=== PATIENT | female | born 1930 | race African-American/Black ===

== ENCOUNTER 2016-10-27 08:46 | Outpatient (CLI) | payer MEDICARE ==
[2016-10-27 09:06] LABS: #Basophils 0.1 thou/uL (0.0-0.2); #Eosinphils 0.2 thou/uL (0.0-0.7); #Lymphocytes 0.9 thou/uL (1.20-3.40); #Monocytes 0.6 thou/uL (0.11-0.59); #Neutrophils 3.4 thou/uL (1.40-6.50); %Basophils 1.3 % (0.0-1.0); %Eosinophils 3.6 % (0.0-10.0); %Monocytes 10.8 % (0.0-10.0); Hematocrit 28.8 % (36.0-47.0); Mean Platelet Volume 5.5 fL (7.4-10.4); Red Blood Cell (RBC) Count 2.76 mill/uL (4.20-5.40); White Blood Cell (WBC) Count 5.1 thou/uL (4.8-10.8)
[2016-10-27 09:09] LABS: Prothrombin Time 17.4 SEC (12.0-14.7)
[2016-10-27 09:23] LABS: Hemoglobin A1c 7.3 % (4.0-6.0)
[2016-10-27 09:35] LABS: ALT (SGPT) 16 U/L (0-55); AST (SGOT) 16 U/L (5-34); Alkaline Phosphatase 68 U/L (40-150); Anion Gap 12 mmol/L (10-20); BUN (Urea Nitrogen) 31 mg/dL (9.8-20.1); Bilirubin, Total 0.3 mg/dL (0.2-1.2); Calc. Creatinine Clearance 0 mL/min (70-130); Calcium 8.6 mg/dL (7.8-10.44); Carbon Dioxide 30 mmol/L (23-31); Chloride 104 mmol/L (98-107); Estimated GFR-MDRD 45; LDL Cholesterol, Calculated 173 mg/dL; Protein, Total 6.6 g/dL (5.8-8.1)
== END 2016-10-27 08:47 | disposition home or self-care (01) ==
LOC: BURLAB 08:46
PROVIDERS: ATTEND Family Medicine
DX: E78.5 Hyperlipidemia, unspecified (principal); E11.9 Type 2 diabetes mellitus without complications; I10 Essential (primary) hypertension; Z79.01 Long term (current) use of anticoagulants
CPT/HCPCS: 36415; 80053; 80061; 83036; 85025; 85610

== ENCOUNTER 2016-11-13 11:07 | Outpatient (CLI) | payer MEDICARE ==
--- NOTE | 2016-11-13 20:09 | RAD ---
CHEST TWO VIEWS: Date: 11-13-16 Comparison: 03-22-16 FINDINGS: The heart is moderately enlarged. The upper lobe vessels really do not appear congested. There are no effusions. Some lingular scarring is noted on the left. No major lobar infiltrate was seen. M edian sternotomy sutures are noted as usual, as well as evidence of a prior valvular replacement. T here is some slight fragmentation of the right humeral head that appears chronic. IMPRESSION: Moderate cardiomegaly and some chronic changes in the lungs but no acute findings. POS: HOME
== END 2016-11-13 11:08 | disposition home or self-care (01) ==
LOC: BURRAD 11:07
PROVIDERS: ATTEND Family Medicine
DX: J44.9 Chronic obstructive pulmonary disease, unspecified (principal)
CPT/HCPCS: 71020

== ENCOUNTER 2017-02-06 09:27 | Outpatient (CLI) | payer MEDICARE ==
[2017-02-06 10:14] LABS: Anion Gap 13 mmol/L (10-20); BUN (Urea Nitrogen) 24 mg/dL (9.8-20.1); Calc. Creatinine Clearance 0 mL/min (70-130); Calcium 8.8 mg/dL (7.8-10.44); Carbon Dioxide 27 mmol/L (23-31); Chloride 106 mmol/L (98-107); Estimated GFR-MDRD 34; Glucose 156 mg/dL (83-110); Potassium 4.8 mmol/L (3.5-5.1); Sodium 141 mmol/L (136-145)
== END 2017-02-06 09:28 | disposition home or self-care (01) ==
LOC: BURLAB 09:27
PROVIDERS: ATTEND Specialist
DX: I25.10 Atherosclerotic heart disease of native coronary artery without angina pectoris (principal); Z79.899 Other long term (current) drug therapy
CPT/HCPCS: 36415; 80048

== ENCOUNTER 2017-02-22 13:54 | Outpatient (CLI) | payer MEDICARE ==
[2017-02-22 14:25] LABS: #Eosinphils 0.2 thou/uL (0.0-0.7); #Lymphocytes 1.2 thou/uL (1.20-3.40); #Monocytes 0.6 thou/uL (0.11-0.59); #Neutrophils 3.4 thou/uL (1.40-6.50); %Basophils 0.9 % (0.0-1.0); %Eosinophils 2.9 % (0.0-10.0); %Lymphocytes 21.7 % (21.0-51.0); %Monocytes 10.5 % (0.0-10.0); %Neutrophils 64.1 % (42.0-75.0); Hemoglobin 11.3 g/dL (12.0-16.0); Mean Corpuscular HGB CONC 31.6 g/dL (32.0-36.0); Mean Corpuscular Hemoglobin 32.3 pg (27.0-31.0); Mean Platelet Volume 6.6 fL (7.4-10.4); Platelet Count 201 thou/uL (130-400); RBC Distribution Width 13.6 % (11.5-14.5); Red Blood Cell (RBC) Count 3.49 mill/uL (4.20-5.40); White Blood Cell (WBC) Count 5.3 thou/uL (4.8-10.8)
[2017-02-22 14:43] LABS: ALT (SGPT) 13 U/L (8-55); AST (SGOT) 13 U/L (5-34); Albumin 3.7 g/dL (3.4-4.8); Alkaline Phosphatase 86 U/L (40-150); Anion Gap 13 mmol/L (10-20); BUN (Urea Nitrogen) 37 mg/dL (9.8-20.1); Bilirubin, Total 0.4 mg/dL (0.2-1.2); Calc. Creatinine Clearance 0 mL/min (70-130); Calcium 9.1 mg/dL (7.8-10.44); Carbon Dioxide 32 mmol/L (23-31); Chloride 103 mmol/L (98-107); Estimated GFR-MDRD 29; Glucose 210 mg/dL (83-110); Potassium 4.9 mmol/L (3.5-5.1); Protein, Total 6.7 g/dL (6.0-8.3); Sodium 143 mmol/L (136-145)
[2017-02-22 18:20] LABS: Folate (Folic Acid) 13.4 ng/mL (7.0-31.4)
== END 2017-02-22 13:55 | disposition home or self-care (01) ==
LOC: HPCALD 13:54
PROVIDERS: ATTEND Family Medicine
DX: D53.9 Nutritional anemia, unspecified (principal)
CPT/HCPCS: 36415; 80053; 82607; 82746; 85025

== ENCOUNTER 2017-03-28 09:34 | Outpatient (CLI) | payer MEDICARE ==
--- NOTE | 2017-03-28 20:46 | ULT ---
CAROTID ULTRASOUND 03/28/17 Color duplex doppler ultrasonography of the carotid and vertebral system was performed. The 2D image s do not show a substantial amount of plaque. Doppler readings were within normal limits bilaterally . Peak flows in the right ICA were 86/22 cm/s with a normal systolic velocity ratio of 1.60. Flows i n the left ICA were 104/29 with a systolic velocity of 1.42. Flows in the other carotid vessels were normal. Vertebral flow was antegrade bilaterally. IMPRESSION: No significant carotid findings. No evidence of significant stenosis. POS: HOME
--- NOTE | 2017-03-29 07:44 | CT ---
CT ABDOMEN AND PELVIS WITHOUT CONTRAST 03/28/17 Comparison is made with prior renal ultrasounds of 01/25/16 and 05/02/16. These have shown cyst or cysts in the right kidney in the past, though in neither case did the patie nt image very well by ultrasound. This being a noncontrast study, it does not show the kidneys optim ally. The lung bases are clear. The liver, spleen, and pancreas and were unremarkable within the limitatio ns of a noncontrast study. Prior cholecystectomy is noted. The adrenal glands appear normal as does the abdominal aorta (except for calcifications within it). Regarding the kidneys, there is no large mass or hydronephrosis. There is probably a peripheral cyst in the mid portion of the right kidney that measures 1.3 cm in size. I am hard pressed to see any o ther cysts or mass on today's exam. The bowel is nondistended. There is no sign of inflammatory change around bowel. No free air or free fluid was seen. CT of the pelvis shows no pelvic masses, fluid collections, or other acute changes. There is evidenc e of calcified uterine fibroids. Extensive severe degenerative changes are seen in the patient's lumbar spine. Degenerated discs are seen at multiple levels. There appears to have been a prior vertebroplasty of L3. IMPRESSION: Small right renal cyst about 1.3 cm in size. Otherwise, no findings of acute concern were encountere d. POS: HOME
== END 2017-03-28 09:35 | disposition home or self-care (01) ==
LOC: BURCT 09:34
PROVIDERS: ATTEND Family Medicine
DX: R55 Syncope and collapse (principal); R42 Dizziness and giddiness; N28.1 Cyst of kidney, acquired
CPT/HCPCS: 74176; 93880

== ENCOUNTER 2018-08-09 13:04 | Outpatient (CLI) | payer MEDICARE ==
--- NOTE | 2018-08-09 21:19 | RAD ---
LUMBAR SPINE FIVE VIEWS 08/09/18 Comparison is made with an older lumbar spine study of 08/25/02. I also reviewed the report of a 2017 MRI. A vertebroplasty of L3 has been accomplished. There is grade I spondylolisthesis of L4 on L5 with dis c space narrowing at this level. There is also a desiccated disc with narrowing at L5-S1. Very slight spondylolisthesis is seen at L5-S1. There is also some disc space narrowing at L3-L4 and L4-L5. There is no more than about 1 mm of spondylolisthesis of L3 on L4 on a neutral view and up to 5 mm wi th flexion. There is about 1.2 to 1.3 cm of spondylolisthesis of L4 on L5 with bending. It is difficu lt to visualize well on the extension view, but it is probably closer to 1.1 cm in extension. A minor 5 mm spondylolisthesis of L5 on S1 is noted on most images. IMPRESSION: 1. Multilevel degenerative disc disease at L3 and below. Minimal spondylolisthesis of L3-L4. The most prominent level is L4-L5 which varies between about 1.1 and 1.3 cm of anterior slippage between flexion and extension. At L5-S1, there is a somewhat constant 4 to 5 mm anterior slippage. All of th e findings appear to be due to facet changes. 2. Incidental finding of calcified uterine fibroid. POS: HOME
== END 2018-08-09 13:05 | disposition home or self-care (01) ==
LOC: BURRAD 13:04
PROVIDERS: ATTEND Specialist
DX: M43.16 Spondylolisthesis, lumbar region (principal); M51.36 Other intervertebral disc degeneration, lumbar region
CPT/HCPCS: 72120

== ENCOUNTER 2019-01-29 15:01 | Inpatient (IN) | payer MEDICARE ==
[2019-01-29] MEDS ORDERED: Dextrose 5% in Water 1,000 ML IV PRN (17:29)
[2019-01-29] MEDS ORDERED: Dextrose 50% Abboject 50 ML SYRINGE SLOW IVP PRN (17:29)
[2019-01-29] MEDS ORDERED: ALPRAZolam 0.5 MG TAB PO PRN (18:23)
[2019-01-29] MEDS: Lantus 1000 UNITS/10 ML VIAL SC SCH (20:55)
[2019-01-29] MEDS: Latanoprost 0.005% Ophth Soln 2.5 ml Bottle EA EYE SCH (20:58)
[2019-01-29] MEDS: Carvedilol 12.5 MG TAB PO SCH (20:59)
[2019-01-29] MEDS: Isosorbide Mononitrate 20 MG TAB PO SCH (20:59)
[2019-01-29] MEDS: Atorvastatin Calcium 10 MG TAB PO SCH (20:59)
[2019-01-29] MEDS ORDERED: hydrALAZINE 25 MG TAB PO SCH (21:00)
[2019-01-29] MEDS ORDERED: Albuterol Sulfate 2.5 mg/3 ml Neb NEB PRN (23:00)
[2019-01-30 05:29] LABS: INR-International Normal Ratio 1.6; Prothrombin Time 19.1 SEC (12.0-14.7)
[2019-01-30 05:30] LABS: ALT (SGPT) 15 U/L (8-55); AST (SGOT) 17 U/L (5-34); Albumin 3.4 g/dL (3.4-4.8); Alkaline Phosphatase 95 U/L (40-150); Anion Gap 11 mmol/L (10-20); BUN (Urea Nitrogen) 28 mg/dL (9.8-20.1); Bilirubin, Total 0.4 mg/dL (0.2-1.2); Calc. Creatinine Clearance 48 mL/min (70-130); Carbon Dioxide 34 mmol/L (23-31); Chloride 99 mmol/L (98-107); Estimated GFR-MDRD 48; Globulin 2.8 g/dL (2.4-3.5); Glucose 109 mg/dL (83-110); Potassium 4.2 mmol/L (3.5-5.1); Protein, Total 6.2 g/dL (6.0-8.3); Sodium 140 mmol/L (136-145)
[2019-01-30 05:58] LABS: #Basophils 0.1 thou/uL (0.0-0.2); #Eosinphils 0.2 thou/uL (0.0-0.7); #Lymphocytes 1.1 thou/uL (1.20-3.40); #Monocytes 0.5 thou/uL (0.11-0.59); #Neutrophils 2.5 thou/uL (1.40-6.50); %Basophils 1.3 % (0.0-1.0); %Eosinophils 5.1 % (0.0-10.0); %Lymphocytes 25.6 % (21.0-51.0); %Monocytes 10.8 % (0.0-10.0); %Neutrophils 57.2 % (42.0-75.0); Hemoglobin 9.8 g/dL (12.0-16.0); Hypochromia SLIGHT = 6-15 cells (100X) (0-5/hpf); MDiff Complete? YES; Macrocytosis SLIGHT = 6-15 cells (100X) (0-5/hpf); Mean Corpuscular HGB CONC 29.5 g/dL (32.0-36.0); Mean Corpuscular Hemoglobin 31.5 pg (27.0-31.0); Mean Platelet Volume 6.5 fL (7.4-10.4); Platelet Count 167 thou/uL (130-400); Platelet Morphology Comment Appears Adequate; RBC Distribution Width 14.6 % (11.5-14.5); White Blood Cell (WBC) Count 4.4 thou/uL (4.8-10.8)
[2019-01-30] MEDS: Glimepiride 2 MG TAB PO SCH ×2 (08:11→17:09)
[2019-01-30] MEDS: Isosorbide Mononitrate 20 MG TAB PO SCH ×2 (09:23→21:05)
[2019-01-30] MEDS: Carvedilol 12.5 MG TAB PO SCH ×2 (09:24→21:05)
[2019-01-30] MEDS: Furosemide 40 MG TAB PO SCH (09:25)
[2019-01-30] MEDS: hydrALAZINE 25 MG TAB PO SCH ×3 (09:26→21:05)
[2019-01-30] MEDS: Potassium Chloride 10 MEQ TAB PO SCH (09:27)
[2019-01-30] MEDS: Aspirin 81 mg Enteric Coated Tablet PO SCH (09:27)
[2019-01-30] MEDS: Ferrous Sulfate 325 MG TAB PO SCH ×2 (09:27→17:09)
[2019-01-30] MEDS ORDERED: Loperamide HCl 2 MG CAP PO PRN (10:02)
[2019-01-30] MEDS: Acetaminophen 325 MG TAB PO PRN (12:19)
[2019-01-30] MEDS: HYDROcodone/Acetaminophen 5/325 mg Tablet PO PRN (15:36)
[2019-01-30] MEDS ORDERED: Warfarin Sodium 5 MG TAB PO SCH (17:00)
[2019-01-30] MEDS: HumaLOG 300 UNITS/3 ML VIAL SC PRN (17:19)
[2019-01-30] MEDS: Atorvastatin Calcium 10 MG TAB PO SCH (21:05)
[2019-01-30] MEDS: Latanoprost 0.005% Ophth Soln 2.5 ml Bottle EA EYE SCH (21:07)
[2019-01-30] MEDS: Lantus 1000 UNITS/10 ML VIAL SC SCH (21:08)
[2019-01-31 05:28] LABS: INR-International Normal Ratio 1.4
[2019-01-31] MEDS ORDERED: Warfarin Sodium 5 MG TAB PO SCH (07:49)
[2019-01-31] MEDS: Glimepiride 2 MG TAB PO SCH ×2 (08:26→16:01)
[2019-01-31] MEDS: Isosorbide Mononitrate 20 MG TAB PO SCH ×2 (08:27→20:39)
[2019-01-31] MEDS: Aspirin 81 mg Enteric Coated Tablet PO SCH (08:28)
[2019-01-31] MEDS: hydrALAZINE 25 MG TAB PO SCH ×3 (08:28→20:40)
[2019-01-31] MEDS: Carvedilol 12.5 MG TAB PO SCH ×2 (08:28→20:40)
[2019-01-31] MEDS: Ferrous Sulfate 325 MG TAB PO SCH ×2 (08:29→16:02)
[2019-01-31] MEDS: Furosemide 40 MG TAB PO SCH (08:30)
[2019-01-31] MEDS: Potassium Chloride 10 MEQ TAB PO SCH (08:30)
[2019-01-31] MEDS: HYDROcodone/Acetaminophen 5/325 mg Tablet PO PRN (08:31)
[2019-01-31] MEDS: HumaLOG 300 UNITS/3 ML VIAL SC PRN ×2 (13:16→20:48)
[2019-01-31] MEDS ORDERED: Warfarin Sodium 3 MG TAB PO SCH (17:00)
[2019-01-31] MEDS: Atorvastatin Calcium 10 MG TAB PO SCH (20:39)
[2019-01-31] MEDS: Latanoprost 0.005% Ophth Soln 2.5 ml Bottle EA EYE SCH (20:40)
[2019-01-31] MEDS: Lantus 1000 UNITS/10 ML VIAL SC SCH (20:49)
[2019-02-01 05:47] LABS: INR-International Normal Ratio 1.3
[2019-02-01] MEDS ORDERED: Furosemide 40 MG TAB PO SCH (06:00)
[2019-02-01] MEDS: Glimepiride 2 MG TAB PO SCH ×2 (08:42→16:59)
[2019-02-01] MEDS: Aspirin 81 mg Enteric Coated Tablet PO SCH (08:42)
[2019-02-01] MEDS: Isosorbide Mononitrate 20 MG TAB PO SCH ×2 (08:43→20:09)
[2019-02-01] MEDS: hydrALAZINE 25 MG TAB PO SCH ×3 (08:44→20:10)
[2019-02-01] MEDS: Ferrous Sulfate 325 MG TAB PO SCH ×2 (08:44→16:59)
[2019-02-01] MEDS: Potassium Chloride 10 MEQ TAB PO SCH (08:45)
[2019-02-01] MEDS: Carvedilol 12.5 MG TAB PO SCH ×2 (08:45→20:09)
[2019-02-01] MEDS: Warfarin Sodium 7.5 MG TAB PO SCH (17:00)
[2019-02-01] MEDS: HumaLOG 300 UNITS/3 ML VIAL SC PRN (17:03)
[2019-02-01] MEDS: Latanoprost 0.005% Ophth Soln 2.5 ml Bottle EA EYE SCH (20:09)
[2019-02-01] MEDS: Atorvastatin Calcium 10 MG TAB PO SCH (20:09)
[2019-02-01] MEDS: Lantus 1000 UNITS/10 ML VIAL SC SCH (20:12)
[2019-02-01] MEDS: Acetaminophen 325 MG TAB PO PRN (20:22)
[2019-02-02 05:31] LABS: INR-International Normal Ratio 1.3; Prothrombin Time 16.5 SEC (12.0-14.7)
[2019-02-02] MEDS: HYDROcodone/Acetaminophen 5/325 mg Tablet PO PRN ×2 (08:43→14:53)
[2019-02-02] MEDS: Isosorbide Mononitrate 20 MG TAB PO SCH ×2 (08:47→20:19)
[2019-02-02] MEDS: hydrALAZINE 25 MG TAB PO SCH ×3 (08:48→20:19)
[2019-02-02] MEDS: Aspirin 81 mg Enteric Coated Tablet PO SCH (08:49)
[2019-02-02] MEDS: Ferrous Sulfate 325 MG TAB PO SCH ×2 (08:49→17:16)
[2019-02-02] MEDS: Furosemide 40 MG TAB PO SCH (08:49)
[2019-02-02] MEDS: Glimepiride 2 MG TAB PO SCH ×2 (08:49→17:16)
[2019-02-02] MEDS: Carvedilol 12.5 MG TAB PO SCH ×2 (08:49→20:19)
[2019-02-02] MEDS: Potassium Chloride 10 MEQ TAB PO SCH (08:50)
[2019-02-02] MEDS: HumaLOG 300 UNITS/3 ML VIAL SC PRN (12:19)
[2019-02-02] MEDS: Warfarin Sodium 7.5 MG TAB PO SCH (17:16)
[2019-02-02] MEDS: Atorvastatin Calcium 10 MG TAB PO SCH (20:19)
[2019-02-02] MEDS: Latanoprost 0.005% Ophth Soln 2.5 ml Bottle EA EYE SCH (20:23)
[2019-02-02] MEDS: Lantus 1000 UNITS/10 ML VIAL SC SCH (20:24)
[2019-02-03] MEDS: HYDROcodone/Acetaminophen 5/325 mg Tablet PO PRN ×2 (05:31→12:59)
[2019-02-03 05:34] LABS: INR-International Normal Ratio 1.5; Prothrombin Time 18.4 SEC (12.0-14.7)
[2019-02-03] MEDS: Glimepiride 2 MG TAB PO SCH ×2 (07:35→17:05)
[2019-02-03] MEDS: Potassium Chloride 10 MEQ TAB PO SCH (08:19)
[2019-02-03] MEDS: Aspirin 81 mg Enteric Coated Tablet PO SCH (08:21)
[2019-02-03] MEDS: Furosemide 40 MG TAB PO SCH (08:22)
[2019-02-03] MEDS: Ferrous Sulfate 325 MG TAB PO SCH ×2 (08:22→17:05)
[2019-02-03] MEDS: Carvedilol 12.5 MG TAB PO SCH ×2 (08:28→20:48)
[2019-02-03] MEDS: hydrALAZINE 25 MG TAB PO SCH ×3 (08:29→20:47)
[2019-02-03] MEDS: Isosorbide Mononitrate 20 MG TAB PO SCH ×2 (08:31→20:47)
[2019-02-03] MEDS: Warfarin Sodium 7.5 MG TAB PO SCH (17:05)
[2019-02-03] MEDS: HumaLOG 300 UNITS/3 ML VIAL SC PRN (17:17)
[2019-02-03] MEDS: Latanoprost 0.005% Ophth Soln 2.5 ml Bottle EA EYE SCH (20:48)
[2019-02-03] MEDS: Atorvastatin Calcium 10 MG TAB PO SCH (20:48)
[2019-02-03] MEDS ORDERED: Lantus 1000 UNITS/10 ML VIAL SC SCH (21:00)
[2019-02-04 05:30] LABS: INR-International Normal Ratio 1.7; Prothrombin Time 19.8 SEC (12.0-14.7)
[2019-02-04] MEDS: Aspirin 81 mg Enteric Coated Tablet PO SCH (09:08)
[2019-02-04] MEDS: Isosorbide Mononitrate 20 MG TAB PO SCH ×2 (09:09→21:02)
[2019-02-04] MEDS: Potassium Chloride 10 MEQ TAB PO SCH (09:10)
[2019-02-04] MEDS: Glimepiride 2 MG TAB PO SCH ×2 (09:10→17:28)
[2019-02-04] MEDS: Furosemide 40 MG TAB PO SCH ×2 (09:10→14:14)
[2019-02-04] MEDS: hydrALAZINE 25 MG TAB PO SCH ×3 (09:11→21:02)
[2019-02-04] MEDS: Ferrous Sulfate 325 MG TAB PO SCH ×2 (09:13→17:28)
[2019-02-04] MEDS: Carvedilol 12.5 MG TAB PO SCH ×2 (09:13→21:02)
[2019-02-04] MEDS: Albuterol Sulfate 1.25 MG/3 ML NEB NEB PRN (10:43)
[2019-02-04] MEDS: HumaLOG 300 UNITS/3 ML VIAL SC PRN (13:29)
[2019-02-04] MEDS: Warfarin Sodium 5 MG TAB PO SCH (17:28)
[2019-02-04] MEDS ORDERED: Furosemide 40 MG TAB PO SCH (21:00)
[2019-02-04] MEDS: Latanoprost 0.005% Ophth Soln 2.5 ml Bottle EA EYE SCH (21:02)
[2019-02-04] MEDS: Atorvastatin Calcium 10 MG TAB PO SCH (21:02)
[2019-02-04] MEDS: Lantus 1000 UNITS/10 ML VIAL SC SCH (21:09)
[2019-02-05 05:29] LABS: Hemoglobin 9.4 g/dL (12.0-16.0); Platelet Count 149 thou/uL (130-400)
[2019-02-05 05:34] LABS: INR-International Normal Ratio 1.8; Prothrombin Time 21.2 SEC (12.0-14.7)
[2019-02-05] MEDS: Glimepiride 2 MG TAB PO SCH (07:49)
[2019-02-05] MEDS: Ferrous Sulfate 325 MG TAB PO SCH ×2 (08:58→17:24)
[2019-02-05] MEDS: Metolazone 5 MG TAB PO SCH (08:58)
[2019-02-05] MEDS: hydrALAZINE 25 MG TAB PO SCH ×3 (08:58→20:28)
[2019-02-05] MEDS: Potassium Chloride 10 MEQ TAB PO SCH (08:58)
[2019-02-05] MEDS: Furosemide 40 MG TAB PO SCH ×2 (08:59→14:20)
[2019-02-05] MEDS: Aspirin 81 mg Enteric Coated Tablet PO SCH (08:59)
[2019-02-05] MEDS: Carvedilol 12.5 MG TAB PO SCH ×2 (09:00→20:28)
[2019-02-05] MEDS: Isosorbide Mononitrate 20 MG TAB PO SCH ×2 (09:01→20:28)
[2019-02-05] MEDS: HumaLOG 300 UNITS/3 ML VIAL SC PRN (13:08)
[2019-02-05] MEDS: Warfarin Sodium 5 MG TAB PO SCH (17:24)
[2019-02-05] MEDS: Atorvastatin Calcium 10 MG TAB PO SCH (20:28)
[2019-02-05] MEDS: Latanoprost 0.005% Ophth Soln 2.5 ml Bottle EA EYE SCH (20:28)
[2019-02-05] MEDS: Lantus 1000 UNITS/10 ML VIAL SC SCH (20:34)
[2019-02-06 05:23] LABS: INR-International Normal Ratio 2.1
[2019-02-06] MEDS: HYDROcodone/Acetaminophen 5/325 mg Tablet PO PRN (09:18)
[2019-02-06] MEDS: Ferrous Sulfate 325 MG TAB PO SCH ×2 (09:19→17:16)
[2019-02-06] MEDS: Potassium Chloride 10 MEQ TAB PO SCH (09:21)
[2019-02-06] MEDS: Aspirin 81 mg Enteric Coated Tablet PO SCH (09:21)
[2019-02-06] MEDS: Carvedilol 12.5 MG TAB PO SCH ×2 (09:21→21:12)
[2019-02-06] MEDS: hydrALAZINE 25 MG TAB PO SCH ×3 (09:21→21:11)
[2019-02-06] MEDS: Isosorbide Mononitrate 20 MG TAB PO SCH ×2 (09:22→21:11)
[2019-02-06] MEDS: Furosemide 40 MG TAB PO SCH ×2 (09:23→14:21)
[2019-02-06] MEDS: Warfarin Sodium 5 MG TAB PO SCH (17:16)
[2019-02-06] MEDS: HumaLOG 300 UNITS/3 ML VIAL SC PRN (17:25)
[2019-02-06] MEDS: Atorvastatin Calcium 10 MG TAB PO SCH (21:12)
[2019-02-06] MEDS: Latanoprost 0.005% Ophth Soln 2.5 ml Bottle EA EYE SCH (21:14)
[2019-02-06] MEDS: Lantus 1000 UNITS/10 ML VIAL SC SCH (21:14)
[2019-02-07] MEDS: HYDROcodone/Acetaminophen 5/325 mg Tablet PO PRN (00:28)
[2019-02-07 05:07] LABS: Hemoglobin 8.7 g/dL (12.0-16.0); Platelet Count 128 thou/uL (130-400)
[2019-02-07 05:30] LABS: INR-International Normal Ratio 2.6; Prothrombin Time 27.6 SEC (12.0-14.7)
[2019-02-07] MEDS: Metolazone 5 MG TAB PO SCH (08:28)
[2019-02-07] MEDS: Ferrous Sulfate 325 MG TAB PO SCH ×2 (08:28→16:38)
[2019-02-07] MEDS: hydrALAZINE 25 MG TAB PO SCH ×3 (08:41→21:41)
[2019-02-07] MEDS: Aspirin 81 mg Enteric Coated Tablet PO SCH (08:44)
[2019-02-07] MEDS: Isosorbide Mononitrate 20 MG TAB PO SCH ×2 (08:44→21:41)
[2019-02-07] MEDS: Carvedilol 12.5 MG TAB PO SCH ×2 (08:44→21:42)
[2019-02-07] MEDS: Furosemide 40 MG TAB PO SCH ×2 (08:44→14:26)
[2019-02-07] MEDS: Potassium Chloride 10 MEQ TAB PO SCH (08:46)
[2019-02-07] MEDS: HumaLOG 300 UNITS/3 ML VIAL SC PRN ×2 (13:02→21:42)
[2019-02-07] MEDS: Warfarin Sodium 5 MG TAB PO SCH (16:38)
[2019-02-07] MEDS: Atorvastatin Calcium 10 MG TAB PO SCH (21:41)
[2019-02-07] MEDS: Lantus 1000 UNITS/10 ML VIAL SC SCH (21:42)
[2019-02-07] MEDS: Latanoprost 0.005% Ophth Soln 2.5 ml Bottle EA EYE SCH (21:43)
[2019-02-08 05:41] LABS: INR-International Normal Ratio 2.8; Prothrombin Time 29.4 SEC (12.0-14.7)
[2019-02-08] MEDS: Carvedilol 12.5 MG TAB PO SCH ×2 (10:17→21:20)
[2019-02-08] MEDS: Furosemide 40 MG TAB PO SCH ×2 (10:17→14:28)
[2019-02-08] MEDS: hydrALAZINE 25 MG TAB PO SCH ×3 (10:19→21:20)
[2019-02-08] MEDS: Ferrous Sulfate 325 MG TAB PO SCH ×2 (10:19→17:36)
[2019-02-08] MEDS: Aspirin 81 mg Enteric Coated Tablet PO SCH (10:20)
[2019-02-08] MEDS: Isosorbide Mononitrate 20 MG TAB PO SCH ×2 (10:20→21:21)
[2019-02-08] MEDS: Potassium Chloride 10 MEQ TAB PO SCH (10:21)
[2019-02-08] MEDS ORDERED: Warfarin Sodium 5 MG TAB PO SCH (17:00)
[2019-02-08] MEDS ORDERED: Warfarin Sodium 3 MG TAB PO SCH (17:45)
[2019-02-08] MEDS: HumaLOG 300 UNITS/3 ML VIAL SC PRN ×2 (18:06→21:22)
[2019-02-08] MEDS: Lantus 1000 UNITS/10 ML VIAL SC SCH (21:20)
[2019-02-08] MEDS: Latanoprost 0.005% Ophth Soln 2.5 ml Bottle EA EYE SCH (21:21)
[2019-02-08] MEDS: Atorvastatin Calcium 10 MG TAB PO SCH (21:21)
[2019-02-09 04:41] LABS: Hemoglobin 8.3 g/dL (12.0-16.0); Platelet Count 141 thou/uL (130-400)
[2019-02-09] MEDS: HYDROcodone/Acetaminophen 5/325 mg Tablet PO PRN (04:46)
[2019-02-09 04:51] LABS: INR-International Normal Ratio 3.4
[2019-02-09] MEDS: Isosorbide Mononitrate 20 MG TAB PO SCH ×2 (09:18→21:10)
[2019-02-09] MEDS: hydrALAZINE 25 MG TAB PO SCH ×3 (09:20→21:09)
[2019-02-09] MEDS: Furosemide 40 MG TAB PO SCH ×2 (09:20→14:14)
[2019-02-09] MEDS: Potassium Chloride 10 MEQ TAB PO SCH (09:20)
[2019-02-09] MEDS: Aspirin 81 mg Enteric Coated Tablet PO SCH (09:20)
[2019-02-09] MEDS: Carvedilol 12.5 MG TAB PO SCH ×2 (09:20→21:09)
[2019-02-09] MEDS: Ferrous Sulfate 325 MG TAB PO SCH ×2 (09:21→17:35)
[2019-02-09] MEDS ORDERED: Warfarin Sodium 3 MG TAB PO SCH (17:00)
[2019-02-09] MEDS: HumaLOG 300 UNITS/3 ML VIAL SC PRN (17:36)
[2019-02-09] MEDS: Atorvastatin Calcium 10 MG TAB PO SCH (21:10)
[2019-02-09] MEDS: Latanoprost 0.005% Ophth Soln 2.5 ml Bottle EA EYE SCH (21:11)
[2019-02-09] MEDS: Lantus 1000 UNITS/10 ML VIAL SC SCH (21:33)
[2019-02-10 05:17] VITALS: BMI 40.0
[2019-02-10 05:37] LABS: Prothrombin Time 31.1 SEC (12.0-14.7)
[2019-02-10] MEDS ORDERED: Loratadine 10 MG TAB PO PRN (07:28)
[2019-02-10] MEDS: Potassium Chloride 10 MEQ TAB PO SCH (09:04)
[2019-02-10] MEDS: Isosorbide Mononitrate 20 MG TAB PO SCH ×2 (09:04→21:10)
[2019-02-10] MEDS: Furosemide 40 MG TAB PO SCH ×2 (09:08→14:37)
[2019-02-10] MEDS: hydrALAZINE 25 MG TAB PO SCH ×3 (09:08→21:10)
[2019-02-10] MEDS: Metolazone 5 MG TAB PO SCH (09:08)
[2019-02-10] MEDS: Carvedilol 12.5 MG TAB PO SCH ×2 (09:08→21:11)
[2019-02-10] MEDS: Ferrous Sulfate 325 MG TAB PO SCH ×2 (09:09→17:56)
[2019-02-10] MEDS: Aspirin 81 mg Enteric Coated Tablet PO SCH (09:09)
[2019-02-10] MEDS: Loratadine 10 MG TAB PO SCH (09:52)
[2019-02-10] MEDS: predniSONE 20 MG TAB PO SCH (09:53)
[2019-02-10] MEDS: Fluticasone Propionate Nasal Spray 16 gm Bottle NASAL SCH (09:53)
[2019-02-10] MEDS: Carbamide Peroxide 6.5% Otic Drops 15 ml Bottle L EAR SCH ×2 (16:15→21:10)
[2019-02-10] MEDS: Warfarin Sodium 7.5 MG TAB PO SCH (17:56)
[2019-02-10] MEDS: Albuterol Sulfate 1.25 MG/3 ML NEB NEB PRN (17:59)
[2019-02-10] MEDS: HumaLOG 300 UNITS/3 ML VIAL SC PRN ×2 (18:03→21:14)
[2019-02-10] MEDS: Acetaminophen 325 MG TAB PO PRN (18:08)
[2019-02-10] MEDS: Latanoprost 0.005% Ophth Soln 2.5 ml Bottle EA EYE SCH (21:10)
[2019-02-10] MEDS: Atorvastatin Calcium 10 MG TAB PO SCH (21:11)
[2019-02-10] MEDS: Lantus 1000 UNITS/10 ML VIAL SC SCH (21:15)
[2019-02-11 04:37] LABS: Hemoglobin 8.3 g/dL (12.0-16.0); Platelet Count 137 thou/uL (130-400)
[2019-02-11 05:01] LABS: INR-International Normal Ratio 2.8; Prothrombin Time 29.2 SEC (12.0-14.7)
[2019-02-11] MEDS: Fluticasone Propionate Nasal Spray 16 gm Bottle NASAL SCH (08:54)
[2019-02-11] MEDS: hydrALAZINE 25 MG TAB PO SCH ×3 (08:56→21:30)
[2019-02-11] MEDS: predniSONE 20 MG TAB PO SCH (08:56)
[2019-02-11] MEDS: Carvedilol 12.5 MG TAB PO SCH ×2 (08:56→21:31)
[2019-02-11] MEDS: Ferrous Sulfate 325 MG TAB PO SCH ×2 (08:56→17:49)
[2019-02-11] MEDS: Isosorbide Mononitrate 20 MG TAB PO SCH ×2 (08:57→21:31)
[2019-02-11] MEDS: Furosemide 40 MG TAB PO SCH ×2 (08:57→14:06)
[2019-02-11] MEDS: Aspirin 81 mg Enteric Coated Tablet PO SCH (08:57)
[2019-02-11] MEDS: Potassium Chloride 10 MEQ TAB PO SCH (08:57)
[2019-02-11] MEDS: Loratadine 10 MG TAB PO SCH (08:58)
[2019-02-11] MEDS: HYDROcodone/Acetaminophen 5/325 mg Tablet PO PRN ×2 (09:53→14:07)
[2019-02-11] MEDS: Carbamide Peroxide 6.5% Otic Drops 15 ml Bottle L EAR SCH ×2 (09:55→21:33)
[2019-02-11 11:45] LABS: Clarity Hazy (Clear); Leukocyte Trace (Negative); Nitrite Negative (Negative); Protein, Urine (Dipstick) Trace mg/dL (Neg-Trace)
[2019-02-11 11:46] LABS: Bacteria/HPF Rare-Few HPF (None Seen); Bilirubin Negative (Negative); Blood, Urine Negative (Negative); Crystals/HPF 2+ AMORPH PHOS HPF (Negative); Glucose, Urine (Dipstick) Negative (Negative); RBC/HPF 0-3 HPF (0-3); Squamous Epithelial 0-3 HPF (0-3); Urobilinogen 0.2 mg/dL (0.2-1.0); WBC/HPF 0-3 HPF (0-3)
[2019-02-11] MEDS: HumaLOG 300 UNITS/3 ML VIAL SC PRN ×3 (13:11→21:53)
[2019-02-11] MEDS: Warfarin Sodium 7.5 MG TAB PO SCH (17:49)
--- NOTE | 2019-02-11 20:07 | RAD ---
ABDOMEN: 02/11/19 Comparison is made with a 03/11/13 study. The gas pattern is normal. There is no sign of obstruction. A moderate amount of fecal material is s een in the right colon. Clips are noted in the right upper quadrant. A calcified uterine fibroid is s een in the pelvis to the left of midline. The bones are quite osteoporotic. A vertebroplasty at L3 is evident. The visible portions of the lung bases were clear. IMPRESSION: No acute abdominal findings. POS: HOME
[2019-02-11] MEDS: Atorvastatin Calcium 10 MG TAB PO SCH (21:31)
[2019-02-11] MEDS: Latanoprost 0.005% Ophth Soln 2.5 ml Bottle EA EYE SCH (21:33)
[2019-02-11 21:45] LABS: #Lymphocytes 0.7 thou/uL (1.20-3.40); #Monocytes 0.4 thou/uL (0.11-0.59); #Neutrophils 4.5 thou/uL (1.40-6.50); %Basophils 0.8 % (0.0-1.0); %Lymphocytes 11.7 % (21.0-51.0); %Monocytes 6.5 % (0.0-10.0); Hemoglobin 8.7 g/dL (12.0-16.0); Hypochromia SLIGHT = 6-15 cells (100X) (0-5/hpf); Mean Corpuscular HGB CONC 30.4 g/dL (32.0-36.0); Mean Corpuscular Hemoglobin 32.1 pg (27.0-31.0); Mean Platelet Volume 7.3 fL (7.4-10.4); Platelet Count 156 thou/uL (130-400); RBC Distribution Width 13.7 % (11.5-14.5); Red Blood Cell (RBC) Count 2.72 mill/uL (4.20-5.40); White Blood Cell (WBC) Count 5.6 thou/uL (4.8-10.8)
[2019-02-11 21:46] LABS: Platelet Morphology Comment Appears Adequate
[2019-02-11 21:47] LABS: ALT (SGPT) 17 U/L (8-55); AST (SGOT) 21 U/L (5-34); Albumin 3.6 g/dL (3.4-4.8); Alkaline Phosphatase 117 U/L (40-150); Anion Gap 16 mmol/L (10-20); BUN (Urea Nitrogen) 101 mg/dL (9.8-20.1); Bilirubin, Total Less than 0.2 mg/dL (0.2-1.2); Calc. Creatinine Clearance 22 mL/min (70-130); Calcium 8.9 mg/dL (7.8-10.44); Carbon Dioxide 30 mmol/L (23-31); Chloride 97 mmol/L (98-107); Estimated GFR-MDRD 19; Globulin 3.2 g/dL (2.4-3.5); Glucose 188 mg/dL (83-110); Potassium 4.6 mmol/L (3.5-5.1); Protein, Total 6.8 g/dL (6.0-8.3); Sodium 138 mmol/L (136-145)
[2019-02-11] MEDS: Lantus 1000 UNITS/10 ML VIAL SC SCH (21:52)
[2019-02-11 22:35] LABS: MDiff Complete? YES; Macrocytosis SLIGHT = 6-15 cells (100X) (0-5/hpf)
[2019-02-12 04:49] LABS: INR-International Normal Ratio 3.2
[2019-02-12 06:12] VITALS: BP 96/50; TEMP 98
[2019-02-12] MEDS: Potassium Chloride 10 MEQ TAB PO SCH (09:19)
[2019-02-12] MEDS: Loratadine 10 MG TAB PO SCH (09:20)
[2019-02-12] MEDS: Ferrous Sulfate 325 MG TAB PO SCH (09:20)
[2019-02-12] MEDS: Furosemide 40 MG TAB PO SCH (09:20)
[2019-02-12] MEDS: Aspirin 81 mg Enteric Coated Tablet PO SCH (09:20)
[2019-02-12] MEDS: Fluticasone Propionate Nasal Spray 16 gm Bottle NASAL SCH (09:20)
[2019-02-12] MEDS: HYDROcodone/Acetaminophen 5/325 mg Tablet PO PRN (09:26)
[2019-02-12] MEDS: Isosorbide Mononitrate 20 MG TAB PO SCH (09:28)
[2019-02-12] MEDS: Carvedilol 12.5 MG TAB PO SCH (09:29)
[2019-02-12] MEDS: Carbamide Peroxide 6.5% Otic Drops 15 ml Bottle L EAR SCH (09:31)
[2019-02-12] MEDS: hydrALAZINE 25 MG TAB PO SCH (09:34)
[2019-02-12 12:06] LABS: Creatinine, Urine 66.71 mg/dL (47-110)
--- NOTE | 2019-02-13 11:34 | DIS ---
DATE OF ADMISSION: 01/29/2019 DATE OF DISCHARGE: 02/12/2019 ADMISSION DIAGNOSES: Physical deconditioning, chronic diastolic congestive heart failure, atrial fibrillation, pulmonary hypertension, status post mitral valve repair, hypertension, dyslipidemia, type 2 diabetes mellitus. DISCHARGE DIAGNOSIS: Cardiorenal syndrome. HOSPITAL COURSE: This is an 89-year-old female, who transitioned to [facility] as a swing patient for skilled care with physical therapy and occupational therapy status post admission at [facility] a couple of weeks ago, where she was treated for acute on chronic diastolic congestive heart failure exacerbation. Her deputy chief counsel is Dr. Salas. Due to the patient's advanced age and chronic comorbidities, she transitioned to our facility to participate with physical therapy and occupational therapy. The patient's weight has slowly increased during her stay; she is typically on 40 mg of Lasix b.i.d., however, secondary to her weight gain in light of fluid restriction, metolazone 5 mg p.o. administered Sunday, Sunday, Sunday was added; however, she has not improved as far as her volume status. The patient's BNP this morning is 758.1. Of equal concern is the patient's worsening renal status. She typically has chronic kidney disease stage 3; however, she has had worsening kidney function over the last 4 to 5 days. As of this morning, her creatinine has elevated to a level of 2.8 with a GFR of 19, whereas her baseline creatinine is around 1.5. Due to these findings, there is a notable concern for cardiorenal syndrome with need to transfer to a higher level facility, thus I have discussed with Niranjan Kidd Physician at [facility] for transfer. We did reach out to [facility]; however, they are on ER hold, and thus it was decided to proceed with transfer to [place] instead. The patient did have mild hypotension this morning with blood pressure of 96/50, however, repeat systolic blood pressure is 130 upon recheck. Her vitals are otherwise stable. She is on her baseline supplemental oxygen at 2 L. DISPOSITION: The patient will transition from swing bed status at [facility] to [facility] in [place] for higher level care secondary to cardiorenal syndrome. I have discussed this patient with Niranjan Kidd Physician. DISCHARGE MEDICATIONS: 1. Tylenol 650 mg q.4 hours p.r.n. 2. Albuterol 1.25 mg nebs q.6 hours p.r.n. 3. Alprazolam 0.25 mg q.24 hours p.r.n. 4. Aspirin 81 mg p.o. daily. 5. Atorvastatin 10 mg p.o. daily. 6. Carvedilol 12.5 mg b.i.d. 7. Felodipine 2.5 mg p.o. daily. 8. Ferrous sulfate 325 mg p.o. b.i.d. 9. Lasix 40 mg p.o. b.i.d. 10. Hydralazine 25 mg p.o. t.i.d. 11. Lantus 8 units subcutaneously q.h.s. 12. Isosorbide mononitrate 10 mg p.o. b.i.d. 13. Latanoprost 1 drop to each eye at night. 14. Imodium 2 mg p.o. daily p.r.n. 15. Claritin 10 mg p.o. daily. 16. Olmesartan 20 mg p.o. daily. 17. Pantoprazole 40 mg p.o. daily. 18. Potassium chloride 10 mEq p.o. daily. 19. Zoloft 100 mg p.o. daily. 20. Coumadin 7.5 mg p.o. daily. Job ID: [id number] [facility]
[2019-02-13] MEDS ORDERED: Warfarin Sodium 7.5 MG TAB PO SCH (17:00)
== END 2019-02-12 11:30 | disposition short-term general hospital (02) | DRG 292 ==
LOC: BURMED 16:15
PROVIDERS: ADMIT Family Medicine; ATTEND Family Medicine
DX: I13.0 Hypertensive heart and chronic kidney disease with heart failure and stage 1 through stage 4 chronic kidney disease, or unspecified chronic kidney disease (principal); I50.32 Chronic diastolic (congestive) heart failure; Z68.41 Body mass index [BMI] 40.0-44.9, adult; I48.91 Unspecified atrial fibrillation; I27.20 Pulmonary hypertension, unspecified; E78.5 Hyperlipidemia, unspecified; R53.81 Other malaise; N18.3 Chronic kidney disease, stage 3 (moderate); E11.22 Type 2 diabetes mellitus with diabetic chronic kidney disease; I95.9 Hypotension, unspecified; I34.0 Nonrheumatic mitral (valve) insufficiency; G47.30 Sleep apnea, unspecified; I25.10 Atherosclerotic heart disease of native coronary artery without angina pectoris; E66.01 Morbid (severe) obesity due to excess calories
CPT/HCPCS: 36415; 36416; 74018; 80053; 81001; 82565; 82570; 82607; 83880; 84540; 85014; 85018; 85025; 85049; 85610; A4353; J1815; J7512

== ENCOUNTER 2019-02-18 17:49 | Inpatient (IN) | payer MEDICARE ==
[2019-02-19 05:47] LABS: Anion Gap 14 mmol/L (10-20); BUN (Urea Nitrogen) 57 mg/dL (9.8-20.1); Calc. Creatinine Clearance 42 mL/min (70-130); Calcium 9.5 mg/dL (7.8-10.44); Carbon Dioxide 35 mmol/L (23-31); Estimated GFR-MDRD 41; Glucose 114 mg/dL (83-110)
[2019-02-19 05:51] LABS: Chloride 97 mmol/L (98-107); Potassium 3.8 mmol/L (3.5-5.1); Sodium 142 mmol/L (136-145)
[2019-02-19 05:57] LABS: INR-International Normal Ratio 2.8; PTT 33.1 SEC (22.9-36.1); Prothrombin Time 29.2 SEC (12.0-14.7)
[2019-02-19] MEDS ORDERED: ALPRAZolam 0.5 MG TAB PO PRN (07:09)
[2019-02-19] MEDS ORDERED: Acetaminophen 325 MG TAB PO PRN (07:09)
[2019-02-19] MEDS ORDERED: Albuterol Sulfate 1.25 MG/3 ML NEB NEB PRN (07:09)
[2019-02-19] MEDS ORDERED: HumaLOG 300 UNITS/3 ML VIAL SC PRN (07:09)
[2019-02-19] MEDS ORDERED: Epoetin (ESRD) 20,000 UNITS/ML SC SCH (08:00)
[2019-02-19] MEDS: Aspirin 81 mg Enteric Coated Tablet PO SCH (08:53)
[2019-02-19] MEDS: hydrALAZINE 25 MG TAB PO SCH ×2 (08:54→21:43)
[2019-02-19] MEDS: Carvedilol 12.5 MG TAB PO SCH ×2 (08:54→21:43)
[2019-02-19] MEDS: Furosemide 40 MG TAB PO SCH ×2 (08:56→14:19)
[2019-02-19] MEDS: Ferrous Gluconate 324 MG TAB PO SCH (08:56)
[2019-02-19] MEDS: Senokot S 8.6-50 MG TAB PO SCH ×2 (08:56→21:44)
[2019-02-19] MEDS: Metolazone 5 MG TAB PO SCH (08:56)
[2019-02-19] MEDS: Isosorbide Mononitrate 20 MG TAB PO SCH ×2 (08:57→21:43)
[2019-02-19] MEDS: Calcium Carbonate + Vit D 1 TAB PO SCH ×2 (09:06→17:08)
[2019-02-19] MEDS: HYDROcodone/Acetaminophen 5/325 mg Tablet PO PRN (09:50)
[2019-02-19] MEDS: HumaLOG 300 UNITS/3 ML VIAL SC PRN ×2 (12:47→17:09)
[2019-02-19] MEDS: Albuterol Sulfate 2.5 mg/3 ml Neb NEB SCH ×2 (14:19→23:39)
[2019-02-19] MEDS: Warfarin Sodium 7.5 MG TAB PO SCH (17:09)
[2019-02-19] MEDS ORDERED: Prevnar 13-Val Conj/PF 0.5 ML SYRINGE IM ONE (21:00)
[2019-02-19] MEDS: Latanoprost 0.005% Ophth Soln 2.5 ml Bottle EA EYE SCH (21:42)
[2019-02-19] MEDS: Atorvastatin Calcium 10 MG TAB PO SCH (21:43)
[2019-02-19] MEDS ORDERED: Loperamide HCl 2 MG CAP PO PRN (21:46)
[2019-02-20 05:19] LABS: Anion Gap 17 mmol/L (10-20); BUN (Urea Nitrogen) 55 mg/dL (9.8-20.1); Calc. Creatinine Clearance 38 mL/min (70-130); Calcium 9.5 mg/dL (7.8-10.44); Carbon Dioxide 34 mmol/L (23-31); Estimated GFR-MDRD 38; Glucose 142 mg/dL (83-110)
[2019-02-20 05:23] LABS: Chloride 95 mmol/L (98-107); INR-International Normal Ratio 3.2; PTT 34.3 SEC (22.9-36.1); Potassium 3.6 mmol/L (3.5-5.1); Prothrombin Time 32.9 SEC (12.0-14.7); Sodium 143 mmol/L (136-145)
[2019-02-20] MEDS: Albuterol Sulfate 2.5 mg/3 ml Neb NEB SCH ×3 (06:07→23:00)
[2019-02-20] MEDS: hydrALAZINE 25 MG TAB PO SCH ×2 (08:47→21:08)
[2019-02-20] MEDS: Furosemide 40 MG TAB PO SCH ×2 (08:48→14:50)
[2019-02-20] MEDS: HYDROcodone/Acetaminophen 5/325 mg Tablet PO PRN ×2 (08:50→13:38)
[2019-02-20] MEDS: Aspirin 81 mg Enteric Coated Tablet PO SCH (08:52)
[2019-02-20] MEDS: Senokot S 8.6-50 MG TAB PO SCH ×2 (08:52→21:08)
[2019-02-20] MEDS: Isosorbide Mononitrate 20 MG TAB PO SCH ×2 (08:54→21:07)
[2019-02-20] MEDS: Ferrous Gluconate 324 MG TAB PO SCH (08:55)
[2019-02-20] MEDS: Carvedilol 12.5 MG TAB PO SCH ×2 (08:56→21:08)
[2019-02-20] MEDS: Calcium Carbonate + Vit D 1 TAB PO SCH ×2 (08:59→17:01)
[2019-02-20] MEDS: HumaLOG 300 UNITS/3 ML VIAL SC PRN (13:33)
[2019-02-20] MEDS: Warfarin Sodium 7.5 MG TAB PO SCH ×2 (17:47→17:52)
[2019-02-20] MEDS: Atorvastatin Calcium 10 MG TAB PO SCH (21:07)
[2019-02-20] MEDS: Latanoprost 0.005% Ophth Soln 2.5 ml Bottle EA EYE SCH (21:08)
[2019-02-21 05:36] LABS: INR-International Normal Ratio 2.9; Prothrombin Time 30.3 SEC (12.0-14.7)
[2019-02-21 05:37] LABS: PTT 35.9 SEC (22.9-36.1)
[2019-02-21 05:41] LABS: Anion Gap 16 mmol/L (10-20); BUN (Urea Nitrogen) 57 mg/dL (9.8-20.1); Calc. Creatinine Clearance 35 mL/min (70-130); Carbon Dioxide 36 mmol/L (23-31); Chloride 93 mmol/L (98-107); Estimated GFR-MDRD 35; Glucose 108 mg/dL (83-110); Potassium 3.6 mmol/L (3.5-5.1); Sodium 141 mmol/L (136-145)
[2019-02-21] MEDS: Albuterol Sulfate 2.5 mg/3 ml Neb NEB SCH ×3 (05:58→22:53)
[2019-02-21] MEDS: Furosemide 40 MG TAB PO SCH ×2 (08:50→14:40)
[2019-02-21] MEDS: Ferrous Gluconate 324 MG TAB PO SCH (08:50)
[2019-02-21] MEDS: Aspirin 81 mg Enteric Coated Tablet PO SCH (08:50)
[2019-02-21] MEDS: hydrALAZINE 25 MG TAB PO SCH ×2 (08:51→21:21)
[2019-02-21] MEDS: Metolazone 5 MG TAB PO SCH (08:53)
[2019-02-21] MEDS: Calcium Carbonate + Vit D 1 TAB PO SCH ×2 (08:53→17:20)
[2019-02-21] MEDS: Isosorbide Mononitrate 20 MG TAB PO SCH ×2 (08:53→21:22)
[2019-02-21] MEDS: Senokot S 8.6-50 MG TAB PO SCH ×2 (08:54→21:22)
[2019-02-21] MEDS: Carvedilol 12.5 MG TAB PO SCH ×2 (08:54→21:22)
[2019-02-21] MEDS: HYDROcodone/Acetaminophen 5/325 mg Tablet PO PRN (09:48)
[2019-02-21] MEDS: HumaLOG 300 UNITS/3 ML VIAL SC PRN ×2 (12:52→17:26)
[2019-02-21] MEDS ORDERED: Warfarin Sodium 5 MG TAB PO SCH ×2 (17:15→17:30)
[2019-02-21] MEDS ORDERED: Warfarin Sodium 2 MG TAB PO SCH ×2 (17:15)
[2019-02-21] MEDS: Warfarin Sodium 7.5 MG TAB PO SCH (18:26)
[2019-02-21] MEDS: Atorvastatin Calcium 10 MG TAB PO SCH (21:22)
[2019-02-21] MEDS: Latanoprost 0.005% Ophth Soln 2.5 ml Bottle EA EYE SCH (21:23)
[2019-02-22 04:05] LABS: INR-International Normal Ratio 2.5; PTT 36.2 SEC (22.9-36.1); Prothrombin Time 27.1 SEC (12.0-14.7)
[2019-02-22 04:08] LABS: Anion Gap 16 mmol/L (10-20); BUN (Urea Nitrogen) 65 mg/dL (9.8-20.1); Calc. Creatinine Clearance 36 mL/min (70-130); Carbon Dioxide 36 mmol/L (23-31); Estimated GFR-MDRD 35; Glucose 123 mg/dL (83-110)
[2019-02-22 04:13] LABS: Chloride 92 mmol/L (98-107); Potassium 3.4 mmol/L (3.5-5.1); Sodium 141 mmol/L (136-145)
[2019-02-22] MEDS: Albuterol Sulfate 2.5 mg/3 ml Neb NEB SCH ×3 (05:54→23:07)
[2019-02-22] MEDS: Ferrous Gluconate 324 MG TAB PO SCH (08:44)
[2019-02-22] MEDS: Aspirin 81 mg Enteric Coated Tablet PO SCH (08:45)
[2019-02-22] MEDS: Calcium Carbonate + Vit D 1 TAB PO SCH ×2 (08:47→17:07)
[2019-02-22] MEDS: hydrALAZINE 25 MG TAB PO SCH ×2 (08:48→20:50)
[2019-02-22] MEDS: Potassium Chloride 20 MEQ TAB PO SCH (08:51)
[2019-02-22] MEDS: Isosorbide Mononitrate 20 MG TAB PO SCH ×2 (08:52→20:51)
[2019-02-22] MEDS: Furosemide 40 MG TAB PO SCH ×2 (08:52→14:52)
[2019-02-22] MEDS: Senokot S 8.6-50 MG TAB PO SCH ×2 (08:52→20:51)
[2019-02-22] MEDS: Carvedilol 12.5 MG TAB PO SCH ×2 (08:53→20:51)
[2019-02-22] MEDS: HumaLOG 300 UNITS/3 ML VIAL SC PRN ×2 (12:48→17:23)
[2019-02-22] MEDS: Warfarin Sodium 5 MG TAB PO SCH (17:07)
[2019-02-22] MEDS: Warfarin Sodium 2 MG TAB PO SCH (17:08)
[2019-02-22] MEDS: Latanoprost 0.005% Ophth Soln 2.5 ml Bottle EA EYE SCH (20:51)
[2019-02-22] MEDS: Atorvastatin Calcium 10 MG TAB PO SCH (20:51)
[2019-02-23 05:49] LABS: INR-International Normal Ratio 2.4
[2019-02-23 05:50] LABS: PTT 33.2 SEC (22.9-36.1)
[2019-02-23 05:53] LABS: Anion Gap 19 mmol/L (10-20); BUN (Urea Nitrogen) 59 mg/dL (9.8-20.1); Calc. Creatinine Clearance 35 mL/min (70-130); Carbon Dioxide 35 mmol/L (23-31); Estimated GFR-MDRD 34; Glucose 130 mg/dL (83-110)
[2019-02-23 05:57] LABS: Chloride 92 mmol/L (98-107); Potassium 3.4 mmol/L (3.5-5.1); Sodium 143 mmol/L (136-145)
[2019-02-23] MEDS: Albuterol Sulfate 2.5 mg/3 ml Neb NEB SCH ×3 (06:07→22:30)
[2019-02-23] MEDS: Furosemide 40 MG TAB PO SCH ×2 (08:22→13:14)
[2019-02-23] MEDS: Potassium Chloride 20 MEQ TAB PO SCH (08:22)
[2019-02-23] MEDS: Senokot S 8.6-50 MG TAB PO SCH ×2 (08:23→20:46)
[2019-02-23] MEDS: hydrALAZINE 25 MG TAB PO SCH ×2 (08:23→20:46)
[2019-02-23] MEDS: Carvedilol 12.5 MG TAB PO SCH ×2 (08:24→20:46)
[2019-02-23] MEDS: Isosorbide Mononitrate 20 MG TAB PO SCH ×2 (08:24→20:46)
[2019-02-23] MEDS: Ferrous Gluconate 324 MG TAB PO SCH (08:24)
[2019-02-23] MEDS: Aspirin 81 mg Enteric Coated Tablet PO SCH (08:24)
[2019-02-23] MEDS: Calcium Carbonate + Vit D 1 TAB PO SCH ×2 (08:24→17:24)
[2019-02-23] MEDS: HYDROcodone/Acetaminophen 5/325 mg Tablet PO PRN (08:30)
[2019-02-23] MEDS: HumaLOG 300 UNITS/3 ML VIAL SC PRN ×2 (13:14→17:30)
[2019-02-23] MEDS: Warfarin Sodium 5 MG TAB PO SCH (17:24)
[2019-02-23] MEDS: Warfarin Sodium 2 MG TAB PO SCH (17:24)
[2019-02-23] MEDS: Atorvastatin Calcium 10 MG TAB PO SCH (20:46)
[2019-02-23] MEDS: Latanoprost 0.005% Ophth Soln 2.5 ml Bottle EA EYE SCH (20:47)
[2019-02-24 05:39] LABS: INR-International Normal Ratio 2.6; PTT 32.6 SEC (22.9-36.1); Prothrombin Time 27.8 SEC (12.0-14.7)
[2019-02-24 05:41] LABS: Anion Gap 20 mmol/L (10-20); BUN (Urea Nitrogen) 63 mg/dL (9.8-20.1); Calc. Creatinine Clearance 0 mL/min (70-130); Calcium 9.7 mg/dL (7.8-10.44); Carbon Dioxide 35 mmol/L (23-31); Estimated GFR-MDRD 28; Glucose 137 mg/dL (83-110)
[2019-02-24 05:45] LABS: Chloride 92 mmol/L (98-107); Potassium 3.5 mmol/L (3.5-5.1); Sodium 143 mmol/L (136-145)
[2019-02-24] MEDS: Albuterol Sulfate 2.5 mg/3 ml Neb NEB SCH ×3 (06:23→22:58)
[2019-02-24] MEDS: Ferrous Gluconate 324 MG TAB PO SCH (09:09)
[2019-02-24] MEDS: Potassium Chloride 20 MEQ TAB PO SCH (09:09)
[2019-02-24] MEDS: hydrALAZINE 25 MG TAB PO SCH ×2 (09:09→21:15)
[2019-02-24] MEDS: Senokot S 8.6-50 MG TAB PO SCH ×2 (09:09→21:15)
[2019-02-24] MEDS: Aspirin 81 mg Enteric Coated Tablet PO SCH (09:09)
[2019-02-24] MEDS: Carvedilol 12.5 MG TAB PO SCH ×2 (09:10→21:15)
[2019-02-24] MEDS: Isosorbide Mononitrate 20 MG TAB PO SCH ×2 (09:10→21:15)
[2019-02-24] MEDS: Calcium Carbonate + Vit D 1 TAB PO SCH ×2 (09:10→17:36)
[2019-02-24] MEDS: Furosemide 40 MG TAB PO SCH ×2 (09:10→14:47)
[2019-02-24] MEDS ORDERED: HYDROcodone/Acetaminophen 5/325 mg Tablet ONE (09:20)
[2019-02-24] MEDS: HYDROcodone/Acetaminophen 5/325 mg Tablet PO PRN (09:22)
[2019-02-24] MEDS: Epoetin (ESRD) 20,000 UNITS/ML SC SCH (09:23)
[2019-02-24] MEDS: HumaLOG 300 UNITS/3 ML VIAL SC PRN ×2 (12:26→21:25)
[2019-02-24] MEDS: Warfarin Sodium 2 MG TAB PO SCH (17:36)
[2019-02-24] MEDS: Warfarin Sodium 5 MG TAB PO SCH (17:36)
[2019-02-24] MEDS: Atorvastatin Calcium 10 MG TAB PO SCH (21:15)
[2019-02-24] MEDS: Latanoprost 0.005% Ophth Soln 2.5 ml Bottle EA EYE SCH (21:16)
[2019-02-25 05:34] LABS: INR-International Normal Ratio 2.7; PTT 34.1 SEC (22.9-36.1); Prothrombin Time 28.4 SEC (12.0-14.7)
[2019-02-25 05:36] LABS: Anion Gap 17 mmol/L (10-20); BUN (Urea Nitrogen) 59 mg/dL (9.8-20.1); Calc. Creatinine Clearance 35 mL/min (70-130); Calcium 9.3 mg/dL (7.8-10.44); Carbon Dioxide 37 mmol/L (23-31); Estimated GFR-MDRD 35; Glucose 117 mg/dL (83-110)
[2019-02-25 05:40] LABS: Chloride 94 mmol/L (98-107); Potassium 3.6 mmol/L (3.5-5.1); Sodium 144 mmol/L (136-145)
[2019-02-25] MEDS: Albuterol Sulfate 2.5 mg/3 ml Neb NEB SCH ×3 (05:58→23:04)
[2019-02-25] MEDS: Senokot S 8.6-50 MG TAB PO SCH ×2 (08:22→21:02)
[2019-02-25] MEDS: Calcium Carbonate + Vit D 1 TAB PO SCH ×2 (08:22→17:06)
[2019-02-25] MEDS: hydrALAZINE 25 MG TAB PO SCH ×2 (08:22→21:03)
[2019-02-25] MEDS: Furosemide 40 MG TAB PO SCH ×2 (08:22→13:02)
[2019-02-25] MEDS: Potassium Chloride 20 MEQ TAB PO SCH (08:22)
[2019-02-25] MEDS: Carvedilol 12.5 MG TAB PO SCH ×2 (08:23→21:02)
[2019-02-25] MEDS: Aspirin 81 mg Enteric Coated Tablet PO SCH (08:23)
[2019-02-25] MEDS: Ferrous Gluconate 324 MG TAB PO SCH (08:23)
[2019-02-25] MEDS: Acetaminophen 325 MG TAB PO PRN (08:23)
[2019-02-25] MEDS: Isosorbide Mononitrate 20 MG TAB PO SCH ×2 (08:24→21:03)
[2019-02-25] MEDS: HumaLOG 300 UNITS/3 ML VIAL SC PRN ×2 (12:16→17:43)
[2019-02-25] MEDS: Warfarin Sodium 2 MG TAB PO SCH (17:07)
[2019-02-25] MEDS: Warfarin Sodium 5 MG TAB PO SCH (17:07)
[2019-02-25] MEDS: Latanoprost 0.005% Ophth Soln 2.5 ml Bottle EA EYE SCH (21:02)
[2019-02-25] MEDS: Atorvastatin Calcium 10 MG TAB PO SCH (21:03)
[2019-02-26] MEDS: Albuterol Sulfate 2.5 mg/3 ml Neb NEB SCH ×2 (06:03→14:48)
[2019-02-26] MEDS: HYDROcodone/Acetaminophen 5/325 mg Tablet PO PRN (08:24)
[2019-02-26] MEDS: Isosorbide Mononitrate 20 MG TAB PO SCH ×2 (08:26→20:24)
[2019-02-26] MEDS: Furosemide 40 MG TAB PO SCH ×2 (08:27→14:48)
[2019-02-26] MEDS: Ferrous Gluconate 324 MG TAB PO SCH (08:27)
[2019-02-26] MEDS: Carvedilol 12.5 MG TAB PO SCH ×2 (08:27→20:24)
[2019-02-26] MEDS: Calcium Carbonate + Vit D 1 TAB PO SCH ×2 (08:27→17:04)
[2019-02-26] MEDS: Senokot S 8.6-50 MG TAB PO SCH ×2 (08:27→20:24)
[2019-02-26] MEDS: Aspirin 81 mg Enteric Coated Tablet PO SCH (08:27)
[2019-02-26] MEDS: hydrALAZINE 25 MG TAB PO SCH ×2 (08:28→20:24)
[2019-02-26] MEDS: Potassium Chloride 20 MEQ TAB PO SCH (08:28)
[2019-02-26 09:36] VITALS: BMI 36.6
[2019-02-26] MEDS: HumaLOG 300 UNITS/3 ML VIAL SC PRN (12:50)
[2019-02-26] MEDS: Acetaminophen 325 MG TAB PO PRN (14:58)
[2019-02-26] MEDS: Warfarin Sodium 5 MG TAB PO SCH (17:04)
[2019-02-26] MEDS: Warfarin Sodium 2 MG TAB PO SCH (17:05)
[2019-02-26] MEDS: Atorvastatin Calcium 10 MG TAB PO SCH (20:24)
[2019-02-26] MEDS: Latanoprost 0.005% Ophth Soln 2.5 ml Bottle EA EYE SCH (20:25)
[2019-02-27] MEDS: hydrALAZINE 25 MG TAB PO SCH ×2 (08:38→21:05)
[2019-02-27] MEDS: Senokot S 8.6-50 MG TAB PO SCH ×3 (08:38→21:05)
[2019-02-27] MEDS: Aspirin 81 mg Enteric Coated Tablet PO SCH (08:38)
[2019-02-27] MEDS: Calcium Carbonate + Vit D 1 TAB PO SCH ×2 (08:40→17:45)
[2019-02-27] MEDS: Carvedilol 12.5 MG TAB PO SCH ×2 (08:42→21:05)
[2019-02-27] MEDS: Ferrous Gluconate 324 MG TAB PO SCH (08:42)
[2019-02-27] MEDS: Isosorbide Mononitrate 20 MG TAB PO SCH ×2 (08:42→21:04)
[2019-02-27] MEDS: Potassium Chloride 20 MEQ TAB PO SCH (08:42)
[2019-02-27] MEDS: Furosemide 40 MG TAB PO SCH ×2 (08:43→13:43)
[2019-02-27] MEDS: Albuterol Sulfate 2.5 mg/3 ml Neb NEB SCH ×4 (08:48→23:20)
[2019-02-27 08:49] LABS: Carbon Dioxide 37 mmol/L (23-31); Chloride 96 mmol/L (98-107); Potassium 3.7 mmol/L (3.5-5.1); Sodium 141 mmol/L (136-145)
[2019-02-27 08:50] LABS: Anion Gap 13 mmol/L (10-20); BUN (Urea Nitrogen) 51 mg/dL (9.8-20.1); Calc. Creatinine Clearance 38 mL/min (70-130); Calcium 8.9 mg/dL (7.8-10.44); Estimated GFR-MDRD 37; Glucose 125 mg/dL (83-110)
[2019-02-27 10:48] LABS: Hemoglobin 8.9 g/dL (12.0-16.0); Platelet Count 133 thou/uL (130-400)
[2019-02-27 10:54] LABS: INR-International Normal Ratio 2.7; Prothrombin Time 28.6 SEC (12.0-14.7)
[2019-02-27] MEDS: HYDROcodone/Acetaminophen 5/325 mg Tablet PO PRN (11:03)
[2019-02-27] MEDS: HumaLOG 300 UNITS/3 ML VIAL SC PRN ×2 (12:05→17:44)
[2019-02-27] MEDS: Acetaminophen 325 MG TAB PO PRN (13:46)
[2019-02-27] MEDS: Warfarin Sodium 2 MG TAB PO SCH (17:45)
[2019-02-27] MEDS: Warfarin Sodium 5 MG TAB PO SCH (17:45)
[2019-02-27] MEDS: Atorvastatin Calcium 10 MG TAB PO SCH (21:05)
[2019-02-27] MEDS: Latanoprost 0.005% Ophth Soln 2.5 ml Bottle EA EYE SCH (21:05)
[2019-02-28 05:31] LABS: INR-International Normal Ratio 2.8; Prothrombin Time 29.7 SEC (12.0-14.7)
[2019-02-28] MEDS: Albuterol Sulfate 2.5 mg/3 ml Neb NEB SCH ×3 (06:47→23:25)
[2019-02-28] MEDS: Aspirin 81 mg Enteric Coated Tablet PO SCH (08:58)
[2019-02-28] MEDS: Isosorbide Mononitrate 20 MG TAB PO SCH ×2 (08:58→21:10)
[2019-02-28] MEDS: Ferrous Gluconate 324 MG TAB PO SCH (09:00)
[2019-02-28] MEDS: Calcium Carbonate + Vit D 1 TAB PO SCH ×2 (09:00→16:52)
[2019-02-28] MEDS: Potassium Chloride 20 MEQ TAB PO SCH (09:00)
[2019-02-28] MEDS: Furosemide 40 MG TAB PO SCH ×2 (09:00→13:17)
[2019-02-28] MEDS: Carvedilol 12.5 MG TAB PO SCH ×2 (09:01→21:11)
[2019-02-28] MEDS: hydrALAZINE 25 MG TAB PO SCH ×2 (09:01→21:06)
[2019-02-28] MEDS: Metolazone 5 MG TAB PO SCH (09:02)
[2019-02-28] MEDS: Senokot S 8.6-50 MG TAB PO SCH ×2 (09:03→21:06)
[2019-02-28] MEDS: HumaLOG 300 UNITS/3 ML VIAL SC PRN ×3 (09:10→17:50)
[2019-02-28] MEDS: HYDROcodone/Acetaminophen 5/325 mg Tablet PO PRN (09:11)
[2019-02-28] MEDS: Warfarin Sodium 5 MG TAB PO SCH (16:52)
[2019-02-28] MEDS: Warfarin Sodium 2 MG TAB PO SCH (16:53)
[2019-02-28] MEDS: Atorvastatin Calcium 10 MG TAB PO SCH (21:11)
[2019-02-28] MEDS: Latanoprost 0.005% Ophth Soln 2.5 ml Bottle EA EYE SCH (21:28)
[2019-03-01 05:16] LABS: Hemoglobin 8.8 g/dL (12.0-16.0); Platelet Count 138 thou/uL (130-400)
[2019-03-01 05:31] LABS: INR-International Normal Ratio 2.9
[2019-03-01 05:32] LABS: Anion Gap 16 mmol/L (10-20); BUN (Urea Nitrogen) 57 mg/dL (9.8-20.1); Calc. Creatinine Clearance 34 mL/min (70-130); Calcium 9.2 mg/dL (7.8-10.44); Carbon Dioxide 33 mmol/L (23-31); Chloride 96 mmol/L (98-107); Estimated GFR-MDRD 32; Glucose 141 mg/dL (83-110); Potassium 3.7 mmol/L (3.5-5.1); Sodium 141 mmol/L (136-145)
[2019-03-01] MEDS: Albuterol Sulfate 2.5 mg/3 ml Neb NEB SCH ×3 (06:41→22:48)
[2019-03-01] MEDS: Ferrous Gluconate 324 MG TAB PO SCH (08:32)
[2019-03-01] MEDS: Calcium Carbonate + Vit D 1 TAB PO SCH ×2 (08:32→16:36)
[2019-03-01] MEDS: Potassium Chloride 20 MEQ TAB PO SCH (08:32)
[2019-03-01] MEDS: Metolazone 5 MG TAB PO SCH (08:33)
[2019-03-01] MEDS: hydrALAZINE 25 MG TAB PO SCH ×2 (09:38→21:18)
[2019-03-01] MEDS: Isosorbide Mononitrate 20 MG TAB PO SCH ×2 (09:38→21:17)
[2019-03-01] MEDS: Aspirin 81 mg Enteric Coated Tablet PO SCH (09:39)
[2019-03-01] MEDS: Furosemide 40 MG TAB PO SCH ×2 (09:40→14:24)
[2019-03-01] MEDS: Carvedilol 12.5 MG TAB PO SCH ×2 (09:40→21:17)
[2019-03-01] MEDS: Senokot S 8.6-50 MG TAB PO SCH ×2 (09:42→21:17)
[2019-03-01] MEDS: HumaLOG 300 UNITS/3 ML VIAL SC PRN (14:20)
[2019-03-01] MEDS: Warfarin Sodium 5 MG TAB PO SCH (16:37)
[2019-03-01] MEDS: Warfarin Sodium 2 MG TAB PO SCH (16:37)
[2019-03-01] MEDS: Atorvastatin Calcium 10 MG TAB PO SCH (21:17)
[2019-03-01] MEDS: Latanoprost 0.005% Ophth Soln 2.5 ml Bottle EA EYE SCH (21:22)
[2019-03-02 05:33] LABS: Prothrombin Time 30.8 SEC (12.0-14.7)
[2019-03-02] MEDS: Albuterol Sulfate 2.5 mg/3 ml Neb NEB SCH ×3 (06:19→22:41)
[2019-03-02] MEDS: Potassium Chloride 20 MEQ TAB PO SCH (08:14)
[2019-03-02] MEDS: Ferrous Gluconate 324 MG TAB PO SCH (08:14)
[2019-03-02] MEDS: Calcium Carbonate + Vit D 1 TAB PO SCH ×2 (08:15→17:07)
[2019-03-02] MEDS: Senokot S 8.6-50 MG TAB PO SCH ×2 (08:43→21:26)
[2019-03-02] MEDS: Aspirin 81 mg Enteric Coated Tablet PO SCH (08:43)
[2019-03-02] MEDS: hydrALAZINE 25 MG TAB PO SCH ×2 (08:47→21:22)
[2019-03-02] MEDS: Carvedilol 12.5 MG TAB PO SCH ×2 (08:48→21:26)
[2019-03-02] MEDS: Isosorbide Mononitrate 20 MG TAB PO SCH ×2 (08:48→21:26)
[2019-03-02] MEDS: Furosemide 40 MG TAB PO SCH ×2 (08:51→14:29)
[2019-03-02] MEDS: Acetaminophen 325 MG TAB PO PRN (10:42)
[2019-03-02] MEDS ORDERED: Warfarin Sodium 2 MG TAB PO SCH (17:00)
[2019-03-02] MEDS: Warfarin Sodium 5 MG TAB PO SCH (17:07)
[2019-03-02] MEDS: HumaLOG 300 UNITS/3 ML VIAL SC PRN (17:21)
[2019-03-02] MEDS: Atorvastatin Calcium 10 MG TAB PO SCH (21:22)
[2019-03-02] MEDS: Latanoprost 0.005% Ophth Soln 2.5 ml Bottle EA EYE SCH (21:26)
[2019-03-03 05:27] LABS: Hemoglobin 9.2 g/dL (12.0-16.0); Platelet Count 144 thou/uL (130-400)
[2019-03-03 05:42] LABS: Prothrombin Time 31.1 SEC (12.0-14.7)
[2019-03-03 05:43] LABS: Anion Gap 14 mmol/L (10-20); BUN (Urea Nitrogen) 58 mg/dL (9.8-20.1); Calc. Creatinine Clearance 37 mL/min (70-130); Calcium 9.4 mg/dL (7.8-10.44); Carbon Dioxide 33 mmol/L (23-31); Chloride 96 mmol/L (98-107); Estimated GFR-MDRD 37; Glucose 128 mg/dL (83-110); Potassium 3.4 mmol/L (3.5-5.1); Sodium 140 mmol/L (136-145)
[2019-03-03] MEDS: Albuterol Sulfate 2.5 mg/3 ml Neb NEB SCH ×3 (06:30→23:20)
[2019-03-03] MEDS ORDERED: Metolazone 5 MG TAB PO SCH (08:30)
[2019-03-03] MEDS: Epoetin (ESRD) 20,000 UNITS/ML SC SCH (10:03)
[2019-03-03] MEDS: Carvedilol 12.5 MG TAB PO SCH ×2 (10:05→21:23)
[2019-03-03] MEDS: Calcium Carbonate + Vit D 1 TAB PO SCH ×2 (10:06→17:46)
[2019-03-03] MEDS: Isosorbide Mononitrate 20 MG TAB PO SCH ×2 (10:07→21:24)
[2019-03-03] MEDS: Aspirin 81 mg Enteric Coated Tablet PO SCH (10:07)
[2019-03-03] MEDS: Furosemide 40 MG TAB PO SCH ×2 (10:09→15:19)
[2019-03-03] MEDS: Senokot S 8.6-50 MG TAB PO SCH ×2 (10:09→21:22)
[2019-03-03] MEDS: Potassium Chloride 20 MEQ TAB PO SCH ×2 (10:09→17:47)
[2019-03-03] MEDS: Ferrous Gluconate 324 MG TAB PO SCH (10:10)
[2019-03-03] MEDS: hydrALAZINE 25 MG TAB PO SCH ×2 (10:10→21:22)
[2019-03-03] MEDS: HumaLOG 300 UNITS/3 ML VIAL SC PRN ×2 (12:53→21:30)
[2019-03-03] MEDS ORDERED: Warfarin Sodium 2 MG TAB PO SCH (17:00)
[2019-03-03] MEDS: Warfarin Sodium 5 MG TAB PO SCH (17:48)
[2019-03-03] MEDS: Atorvastatin Calcium 10 MG TAB PO SCH (21:24)
[2019-03-03] MEDS: Latanoprost 0.005% Ophth Soln 2.5 ml Bottle EA EYE SCH (21:24)
[2019-03-04] MEDS: HYDROcodone/Acetaminophen 5/325 mg Tablet PO PRN (00:53)
[2019-03-04 05:27] LABS: INR-International Normal Ratio 3.1; Prothrombin Time 31.9 SEC (12.0-14.7)
[2019-03-04] MEDS: Albuterol Sulfate 2.5 mg/3 ml Neb NEB SCH (06:09)
[2019-03-04 06:13] VITALS: BP 132/64; TEMP 97.9
[2019-03-04] MEDS: Senokot S 8.6-50 MG TAB PO SCH (09:27)
[2019-03-04] MEDS: Carvedilol 12.5 MG TAB PO SCH (09:27)
[2019-03-04] MEDS: Ferrous Gluconate 324 MG TAB PO SCH (09:27)
[2019-03-04] MEDS: Calcium Carbonate + Vit D 1 TAB PO SCH (09:27)
[2019-03-04] MEDS: Isosorbide Mononitrate 20 MG TAB PO SCH (09:29)
[2019-03-04] MEDS: Potassium Chloride 20 MEQ TAB PO SCH (09:29)
[2019-03-04] MEDS: Aspirin 81 mg Enteric Coated Tablet PO SCH (09:30)
[2019-03-04] MEDS: hydrALAZINE 25 MG TAB PO SCH (09:30)
[2019-03-04] MEDS: Furosemide 40 MG TAB PO SCH ×2 (09:30→13:39)
[2019-03-04] MEDS: HumaLOG 300 UNITS/3 ML VIAL SC PRN (13:26)
--- NOTE | 2019-03-05 09:23 | DIS ---
DATE OF ADMISSION: 02/18/2019 DATE OF DISCHARGE: 03/04/2019 ADMISSION DIAGNOSES: 1. Physical deconditioning. 2. Chronic diastolic congestive heart failure. 3. Cardiorenal syndrome. 4. Anemia of chronic disease, stage 3. 5. Hypertension. 6. Type 2 diabetes mellitus. 7. Pulmonary hypertension. 8. Obstructive sleep apnea. PROCEDURES: None. HOSPITAL COURSE: An 89-year-old female, initially presented to our facility to participate with physical therapy and occupational therapy, status post admission at [facility], where she had been treated for acute on chronic diastolic congestive heart failure exacerbation. The patient did participate with PT and OT, however during her stay, developed cardiorenal syndrome, for which she was briefly transitioned to [facility] in [place], where she was evaluated by both Cardiology and Nephrology. The patient's diuretic medications were changed and an echocardiogram was performed, which showed an ejection fraction estimated at 55% to 60%, dilated right ventricle with reduced right ventricular systolic function, severely dilated left atrium, markedly enlarged right atrium, severe mitral annular calcification with reduced leaflet excursion, moderate mitral regurgitation, moderate to severe tricuspid regurgitation, elevated right ventricular systolic pressure, mild pulmonic regurgitation, moderate to severe aortic valve stenosis, and mild aortic valve regurgitation; this TTE was done on 02/13/2019 and per discharge summary, if diuresis was no longer possible secondary to patient's renal function, the patient will require transfer to a higher level of care for consideration of valve repair. After the patient was consulted by Nephrology, the patient was started on Epogen as well. The patient stabilized overall and transitioned back to our facility to further participate with physical therapy and occupational therapy, which she has been successfully able to do in the last couple weeks. Her renal function has remained stable over this time frame, although I did cut back her Lasix from 80 mg twice a day to 40 mg twice a day and her metolazone from 5 mg on Sunday, Sunday, and Sunday to 2.5 mg on Sunday, Sunday, and Sunday as she did show worsening renal function when on higher doses of diuretic medication. She has adhered to a 1500 mL fluid restricted diet and in conjunction with her diuretics, has maintained euvolemia. Her renal function is at her baseline. She has successfully completed the goal set forth by Physical Therapy and Occupational therapy to be able to return home at this time and she is amenable to do so. DISPOSITION: The patient will be discharged to home, where she has local family support and further transition of care via [facility]. She may follow up with myself in the clinic next week. She may also follow up with her fleet director, Dr. Salas as scheduled. DISCHARGE MEDICATIONS: Include, 1. Epogen once weekly. 2. Ferrous gluconate 324 mg daily. 3. Furosemide 40 mg twice a day. 4. Metolazone 2.5 mg every Sunday, Sunday, and Sunday. 5. Docusate/senna b.i.d. p.r.n. 6. Calcium carbonate with vitamin D one tablet b.i.d. 7. Hydralazine 25 mg twice a day. 8. Potassium chloride 20 mEq b.i.d. 9. Xanax 0.25 mg once daily as needed. 10. Albuterol 1.25 mg q.6 hours p.r.n. 11. Aspirin 81 mg p.o. daily. 12. Carvedilol 12.5 mg p.o. b.i.d. 13. Protonix 40 mg daily. 14. Felodipine extended release 2.5 mg daily. 15. Isosorbide mononitrate 10 mg b.i.d. 16. Latanoprost one drop to each eye at bedtime. 17. Xopenex 1.25 mg q.8 hours p.r.n. 18. Zoloft 100 mg daily. 19. Simvastatin 20 mg at bedtime. 20. Coumadin 6 mg daily. Job ID: [id number]
== END 2019-03-04 15:15 | disposition home or self-care (01) | DRG 292 ==
LOC: BURMED 21:46
PROVIDERS: ADMIT Family Medicine; ATTEND Family Medicine
DX: I13.0 Hypertensive heart and chronic kidney disease with heart failure and stage 1 through stage 4 chronic kidney disease, or unspecified chronic kidney disease (principal); I50.32 Chronic diastolic (congestive) heart failure; N17.9 Acute kidney failure, unspecified; N18.3 Chronic kidney disease, stage 3 (moderate); E11.22 Type 2 diabetes mellitus with diabetic chronic kidney disease; I27.20 Pulmonary hypertension, unspecified; G47.33 Obstructive sleep apnea (adult) (pediatric); I48.0 Paroxysmal atrial fibrillation; E78.5 Hyperlipidemia, unspecified; D63.1 Anemia in chronic kidney disease; I25.10 Atherosclerotic heart disease of native coronary artery without angina pectoris; Z86.711 Personal history of pulmonary embolism; Z88.8 Allergy status to other drugs, medicaments and biological substances; Z79.01 Long term (current) use of anticoagulants
CPT/HCPCS: 36415; 36416; 80048; 85014; 85018; 85049; 85610; 85730; J7611; Q4081

== ENCOUNTER 2019-08-14 11:55 | Inpatient (IN) | payer MEDICARE ==
[2019-08-14] MEDS ORDERED: Warfarin Sodium 5 MG TAB PO SCH ×2 (17:00→18:00)
[2019-08-14 17:25] LABS: INR-International Normal Ratio 2.2; Prothrombin Time 24.6 SEC (12.0-14.7)
[2019-08-14 17:59] LABS: Hemoglobin 9.6 g/dL (12.0-16.0); Platelet Count 212 thou/uL (130-400)
[2019-08-14] MEDS: hydrALAZINE 10 MG TAB PO SCH (20:48)
[2019-08-14] MEDS: Carvedilol 12.5 MG TAB PO SCH (20:49)
[2019-08-14] MEDS: Acetaminophen 325 MG TAB PO PRN (20:50)
[2019-08-14] MEDS: Isosorbide Mononitrate 20 MG TAB PO SCH (20:50)
[2019-08-14] MEDS: Melatonin 3 MG TAB PO SCH (20:51)
[2019-08-14] MEDS: Atorvastatin Calcium 10 MG TAB PO SCH (20:51)
[2019-08-14] MEDS: Senokot S 8.6-50 MG TAB PO SCH (20:51)
[2019-08-14] MEDS ORDERED: DorzolamidE/Timolol 2%/0.5% Ophth Soln 10 ml Bottle EA EYE SCH (21:00)
[2019-08-14] MEDS ORDERED: Latanoprost 0.005% Ophth Soln 2.5 ml Bottle EA EYE SCH (21:00)
[2019-08-14] MEDS: Lantus 1000 UNITS/10 ML VIAL SC SCH (21:10)
[2019-08-15 05:26] LABS: #Basophils 0.1 thou/uL (0.0-0.2); #Eosinphils 0.2 thou/uL (0.0-0.7); #Lymphocytes 0.8 thou/uL (1.20-3.40); #Monocytes 0.5 thou/uL (0.11-0.59); #Neutrophils 2.1 thou/uL (1.40-6.50); %Basophils 1.6 % (0.0-1.0); %Eosinophils 4.5 % (0.0-10.0); %Lymphocytes 21.5 % (21.0-51.0); %Monocytes 14.3 % (0.0-10.0); Hemoglobin 9.3 g/dL (12.0-16.0); Mean Corpuscular HGB CONC 29.7 g/dL (32.0-36.0); Mean Corpuscular Hemoglobin 30.7 pg (27.0-31.0); Mean Platelet Volume 6.6 fL (7.4-10.4); Platelet Count 197 thou/uL (130-400); RBC Distribution Width 14.1 % (11.5-14.5); Red Blood Cell (RBC) Count 3.03 mill/uL (4.20-5.40); White Blood Cell (WBC) Count 3.6 thou/uL (4.8-10.8)
[2019-08-15 05:27] LABS: INR-International Normal Ratio 2.3; Prothrombin Time 25.1 SEC (12.0-14.7)
[2019-08-15 05:40] LABS: ALT (SGPT) 22 U/L (8-55); AST (SGOT) 26 U/L (5-34); Albumin 2.7 g/dL (3.4-4.8); Alkaline Phosphatase 257 U/L (40-110); Anion Gap 12 mmol/L (10-20); BUN (Urea Nitrogen) 52 mg/dL (9.8-20.1); Bilirubin, Total 0.4 mg/dL (0.2-1.2); Calc. Creatinine Clearance 50 mL/min (70-130); Calcium 9.1 mg/dL (7.8-10.44); Carbon Dioxide 33 mmol/L (23-31); Chloride 96 mmol/L (98-107); Estimated GFR-MDRD 49; Globulin 3.2 g/dL (2.4-3.5); Glucose 84 mg/dL (83-110); Potassium 4.1 mmol/L (3.5-5.1); Protein, Total 5.9 g/dL (6.0-8.3); Sodium 137 mmol/L (136-145); Uric Acid 6.9 mg/dL (2.6-6.0)
[2019-08-15] MEDS ORDERED: FLU VACC TS2019-20(65YR UP)/PF 180 MCG/0.5 ML SYRINGE IM ONE (07:30)
[2019-08-15 08:13] LABS: Bilirubin Negative (Negative); Blood, Urine Negative (Negative); Clarity Cloudy (Clear); Glucose, Urine (Dipstick) Negative (Negative); Leukocyte Small (Negative); Nitrite Negative (Negative); Protein, Urine (Dipstick) Negative (Neg-Trace); Urobilinogen 0.2 mg/dL (Less than 2)
[2019-08-15 08:34] LABS: Urine Culture Reflex No No
[2019-08-15 08:35] LABS: Bacteria/HPF Rare-Few HPF (None Seen); Crystals/HPF 1+ CA OXALATE HPF (Negative); RBC/HPF None Seen HPF (0-3); Squamous Epithelial 0-3 HPF (0-3); WBC/HPF 0-3 HPF (0-3)
[2019-08-15] MEDS ORDERED: Furosemide 40 MG TAB PO SCH (09:00)
[2019-08-15] MEDS: hydrALAZINE 10 MG TAB PO SCH ×3 (10:36→21:48)
[2019-08-15] MEDS: Isosorbide Mononitrate 20 MG TAB PO SCH ×2 (10:36→21:48)
[2019-08-15] MEDS: Senokot S 8.6-50 MG TAB PO SCH ×2 (10:37→21:47)
[2019-08-15] MEDS: Colchicine 0.6 MG TAB PO SCH (10:37)
[2019-08-15] MEDS: Aspirin 81 mg Enteric Coated Tablet PO SCH (10:37)
[2019-08-15] MEDS: Potassium Chloride 10 MEQ TAB PO SCH (10:38)
[2019-08-15] MEDS: Carvedilol 12.5 MG TAB PO SCH (10:38)
[2019-08-15] MEDS: PATIENT'S HOME MEDICATION PO SCH (13:22)
[2019-08-15] MEDS: Furosemide 20 MG TAB PO SCH (14:02)
[2019-08-15] MEDS: Warfarin Sodium 5 MG TAB PO SCH (16:58)
[2019-08-15] MEDS: Carvedilol 6.25 MG TAB PO SCH (21:46)
[2019-08-15] MEDS: Atorvastatin Calcium 10 MG TAB PO SCH (21:48)
[2019-08-15] MEDS: Melatonin 3 MG TAB PO SCH (21:48)
[2019-08-15] MEDS: DorzolamidE/Timolol 2%/0.5% Ophth Soln 10 ml Bottle EA EYE SCH (21:53)
[2019-08-15] MEDS: Latanoprost 0.005% Ophth Soln 2.5 ml Bottle EA EYE SCH (21:54)
[2019-08-15] MEDS: Lantus 1000 UNITS/10 ML VIAL SC SCH (21:54)
[2019-08-16 06:04] LABS: INR-International Normal Ratio 2.5; Prothrombin Time 27.1 SEC (12.0-14.7)
[2019-08-16] MEDS: Acetaminophen 325 MG TAB PO PRN ×2 (06:25→21:43)
[2019-08-16] MEDS: Potassium Chloride 10 MEQ TAB PO SCH (10:37)
[2019-08-16] MEDS: Senokot S 8.6-50 MG TAB PO SCH ×2 (10:40→21:45)
[2019-08-16] MEDS: Isosorbide Mononitrate 20 MG TAB PO SCH ×2 (10:40→21:42)
[2019-08-16] MEDS: Carvedilol 6.25 MG TAB PO SCH ×2 (10:42→21:41)
[2019-08-16] MEDS: Colchicine 0.6 MG TAB PO SCH (10:42)
[2019-08-16] MEDS: Aspirin 81 mg Enteric Coated Tablet PO SCH (10:42)
[2019-08-16] MEDS: hydrALAZINE 10 MG TAB PO SCH ×3 (10:43→21:40)
[2019-08-16] MEDS: Furosemide 20 MG TAB PO SCH ×2 (10:43→13:58)
[2019-08-16] MEDS: PATIENT'S HOME MEDICATION PO SCH (10:44)
[2019-08-16] MEDS: Warfarin Sodium 5 MG TAB PO SCH (19:46)
[2019-08-16] MEDS: DorzolamidE/Timolol 2%/0.5% Ophth Soln 10 ml Bottle EA EYE SCH (21:38)
[2019-08-16] MEDS: Melatonin 3 MG TAB PO SCH (21:42)
[2019-08-16] MEDS: Atorvastatin Calcium 10 MG TAB PO SCH (21:42)
[2019-08-16] MEDS: Lantus 1000 UNITS/10 ML VIAL SC SCH (21:43)
[2019-08-16] MEDS: Latanoprost 0.005% Ophth Soln 2.5 ml Bottle EA EYE SCH (21:45)
[2019-08-17 05:42] LABS: Hemoglobin 9.2 g/dL (12.0-16.0); Platelet Count 203 thou/uL (130-400)
[2019-08-17 05:45] LABS: INR-International Normal Ratio 2.7; Prothrombin Time 28.5 SEC (12.0-14.7)
[2019-08-17] MEDS ORDERED: Milk Of Magnesia 30 ML UDCUP PO PRN (09:24)
[2019-08-17] MEDS: hydrALAZINE 10 MG TAB PO SCH ×3 (10:49→20:37)
[2019-08-17] MEDS: Colchicine 0.6 MG TAB PO SCH (10:49)
[2019-08-17] MEDS: Potassium Chloride 10 MEQ TAB PO SCH (10:49)
[2019-08-17] MEDS: Furosemide 20 MG TAB PO SCH ×2 (10:50→14:52)
[2019-08-17] MEDS: Isosorbide Mononitrate 20 MG TAB PO SCH ×2 (10:50→20:35)
[2019-08-17] MEDS: Aspirin 81 mg Enteric Coated Tablet PO SCH (10:50)
[2019-08-17] MEDS: Carvedilol 6.25 MG TAB PO SCH ×2 (10:50→20:36)
[2019-08-17] MEDS: PATIENT'S HOME MEDICATION PO SCH (10:51)
[2019-08-17] MEDS: Senokot S 8.6-50 MG TAB PO SCH ×2 (10:51→20:40)
[2019-08-17] MEDS: Warfarin Sodium 5 MG TAB PO SCH (18:12)
[2019-08-17] MEDS: Atorvastatin Calcium 10 MG TAB PO SCH (20:37)
[2019-08-17] MEDS: Melatonin 3 MG TAB PO SCH (20:38)
[2019-08-17] MEDS: DorzolamidE/Timolol 2%/0.5% Ophth Soln 10 ml Bottle EA EYE SCH (20:39)
[2019-08-17] MEDS: Latanoprost 0.005% Ophth Soln 2.5 ml Bottle EA EYE SCH (20:40)
[2019-08-17] MEDS: Acetaminophen 325 MG TAB PO PRN (20:41)
[2019-08-17] MEDS: Lantus 1000 UNITS/10 ML VIAL SC SCH (20:41)
[2019-08-18 05:24] LABS: INR-International Normal Ratio 2.7; Prothrombin Time 28.3 SEC (12.0-14.7)
[2019-08-18] MEDS: Aspirin 81 mg Enteric Coated Tablet PO SCH (08:31)
[2019-08-18] MEDS: Potassium Chloride 10 MEQ TAB PO SCH (08:31)
[2019-08-18] MEDS: Colchicine 0.6 MG TAB PO SCH (08:32)
[2019-08-18] MEDS: Isosorbide Mononitrate 20 MG TAB PO SCH ×2 (08:32→21:03)
[2019-08-18] MEDS: hydrALAZINE 10 MG TAB PO SCH ×3 (08:33→21:05)
[2019-08-18] MEDS: Furosemide 20 MG TAB PO SCH ×2 (08:35→14:30)
[2019-08-18] MEDS: Senokot S 8.6-50 MG TAB PO SCH ×2 (08:35→21:07)
[2019-08-18] MEDS: Carvedilol 6.25 MG TAB PO SCH ×2 (08:35→21:04)
[2019-08-18] MEDS: Polyethylene Glycol 3350 17 GM Packet PO SCH (08:36)
[2019-08-18] MEDS: PATIENT'S HOME MEDICATION PO SCH (08:37)
[2019-08-18] MEDS: Warfarin Sodium 5 MG TAB PO SCH (17:13)
[2019-08-18] MEDS: Melatonin 3 MG TAB PO SCH (21:04)
[2019-08-18] MEDS: Atorvastatin Calcium 10 MG TAB PO SCH (21:04)
[2019-08-18] MEDS: Lantus 1000 UNITS/10 ML VIAL SC SCH (21:05)
[2019-08-18] MEDS: Latanoprost 0.005% Ophth Soln 2.5 ml Bottle EA EYE SCH (21:06)
[2019-08-18] MEDS: DorzolamidE/Timolol 2%/0.5% Ophth Soln 10 ml Bottle EA EYE SCH (21:06)
[2019-08-19 05:31] LABS: Prothrombin Time 31.1 SEC (12.0-14.7)
[2019-08-19] MEDS: Isosorbide Mononitrate 20 MG TAB PO SCH ×2 (09:12→22:09)
[2019-08-19] MEDS: Furosemide 20 MG TAB PO SCH ×2 (09:12→15:31)
[2019-08-19] MEDS: Aspirin 81 mg Enteric Coated Tablet PO SCH (09:12)
[2019-08-19] MEDS: Colchicine 0.6 MG TAB PO SCH (09:13)
[2019-08-19] MEDS: Potassium Chloride 10 MEQ TAB PO SCH (09:13)
[2019-08-19] MEDS: hydrALAZINE 10 MG TAB PO SCH ×3 (09:14→22:04)
[2019-08-19] MEDS: Carvedilol 6.25 MG TAB PO SCH ×2 (09:15→22:09)
[2019-08-19] MEDS: Polyethylene Glycol 3350 17 GM Packet PO SCH (09:18)
[2019-08-19] MEDS: PATIENT'S HOME MEDICATION PO SCH (09:24)
[2019-08-19] MEDS: Senokot S 8.6-50 MG TAB PO SCH ×2 (15:31→22:10)
[2019-08-19] MEDS: Warfarin Sodium 5 MG TAB PO SCH (18:45)
[2019-08-19] MEDS: Melatonin 3 MG TAB PO SCH (22:08)
[2019-08-19] MEDS: Atorvastatin Calcium 10 MG TAB PO SCH (22:09)
[2019-08-19] MEDS: Lantus 1000 UNITS/10 ML VIAL SC SCH (22:16)
[2019-08-19] MEDS: DorzolamidE/Timolol 2%/0.5% Ophth Soln 10 ml Bottle EA EYE SCH (22:26)
[2019-08-19] MEDS: Latanoprost 0.005% Ophth Soln 2.5 ml Bottle EA EYE SCH (22:27)
[2019-08-20 05:32] LABS: Hemoglobin 9.5 g/dL (12.0-16.0); Platelet Count 211 thou/uL (130-400)
[2019-08-20 05:34] LABS: INR-International Normal Ratio 2.8
[2019-08-20] MEDS: Isosorbide Mononitrate 20 MG TAB PO SCH ×2 (08:10→21:23)
[2019-08-20] MEDS: Aspirin 81 mg Enteric Coated Tablet PO SCH (08:11)
[2019-08-20] MEDS: Carvedilol 6.25 MG TAB PO SCH ×2 (08:13→21:20)
[2019-08-20] MEDS: hydrALAZINE 10 MG TAB PO SCH ×3 (08:14→21:25)
[2019-08-20] MEDS: Potassium Chloride 10 MEQ TAB PO SCH (08:14)
[2019-08-20] MEDS: Furosemide 20 MG TAB PO SCH ×2 (08:14→13:55)
[2019-08-20] MEDS: Senokot S 8.6-50 MG TAB PO SCH ×2 (08:14→21:18)
[2019-08-20] MEDS: Polyethylene Glycol 3350 17 GM Packet PO SCH (08:32)
[2019-08-20] MEDS: Colchicine 0.6 MG TAB PO SCH (08:33)
[2019-08-20] MEDS: PATIENT'S HOME MEDICATION PO SCH (09:53)
[2019-08-20] MEDS: Warfarin Sodium 5 MG TAB PO SCH (17:29)
[2019-08-20] MEDS: Latanoprost 0.005% Ophth Soln 2.5 ml Bottle EA EYE SCH (21:17)
[2019-08-20] MEDS: Melatonin 3 MG TAB PO SCH (21:18)
[2019-08-20] MEDS: Atorvastatin Calcium 10 MG TAB PO SCH (21:19)
[2019-08-20] MEDS: Acetaminophen 325 MG TAB PO PRN (21:19)
[2019-08-20] MEDS: DorzolamidE/Timolol 2%/0.5% Ophth Soln 10 ml Bottle EA EYE SCH (21:26)
[2019-08-20] MEDS: Lantus 1000 UNITS/10 ML VIAL SC SCH (21:28)
[2019-08-21 05:42] LABS: INR-International Normal Ratio 2.9; Prothrombin Time 29.9 SEC (12.0-14.7)
[2019-08-21] MEDS: Senokot S 8.6-50 MG TAB PO SCH ×2 (08:28→21:21)
[2019-08-21] MEDS: Isosorbide Mononitrate 20 MG TAB PO SCH ×2 (08:29→21:22)
[2019-08-21] MEDS: Furosemide 20 MG TAB PO SCH ×2 (08:29→17:21)
[2019-08-21] MEDS: Amlodipine 5 MG TAB PO SCH (08:29)
[2019-08-21] MEDS: Carvedilol 6.25 MG TAB PO SCH ×2 (08:30→21:21)
[2019-08-21] MEDS: Potassium Chloride 10 MEQ TAB PO SCH (08:30)
[2019-08-21] MEDS: hydrALAZINE 10 MG TAB PO SCH ×3 (08:31→21:21)
[2019-08-21] MEDS: Colchicine 0.6 MG TAB PO SCH (08:31)
[2019-08-21] MEDS: Aspirin 81 mg Enteric Coated Tablet PO SCH (08:31)
[2019-08-21] MEDS: Polyethylene Glycol 3350 17 GM Packet PO SCH (08:32)
[2019-08-21] MEDS: Warfarin Sodium 5 MG TAB PO SCH (17:23)
[2019-08-21] MEDS: Melatonin 3 MG TAB PO SCH (21:21)
[2019-08-21] MEDS: Atorvastatin Calcium 10 MG TAB PO SCH (21:21)
[2019-08-21] MEDS: Lantus 1000 UNITS/10 ML VIAL SC SCH (21:22)
[2019-08-21] MEDS: Latanoprost 0.005% Ophth Soln 2.5 ml Bottle EA EYE SCH (21:32)
[2019-08-21] MEDS: DorzolamidE/Timolol 2%/0.5% Ophth Soln 10 ml Bottle EA EYE SCH (21:32)
[2019-08-21] MEDS: Acetaminophen 325 MG TAB PO PRN (23:26)
[2019-08-22] MEDS ORDERED: Dextrose 50% Abboject 50 ML SYRINGE SLOW IVP PRN (07:33)
[2019-08-22] MEDS ORDERED: Dextrose 5% in Water 1,000 ML IV PRN (07:33)
[2019-08-22] MEDS: Potassium Chloride 10 MEQ TAB PO SCH (08:36)
[2019-08-22] MEDS: Furosemide 20 MG TAB PO SCH ×2 (08:37→14:32)
[2019-08-22] MEDS: Isosorbide Mononitrate 20 MG TAB PO SCH ×2 (08:37→20:48)
[2019-08-22] MEDS: Senokot S 8.6-50 MG TAB PO SCH ×2 (08:39→20:49)
[2019-08-22] MEDS: Amlodipine 5 MG TAB PO SCH (08:40)
[2019-08-22] MEDS: hydrALAZINE 10 MG TAB PO SCH ×3 (08:42→20:48)
[2019-08-22] MEDS: Carvedilol 6.25 MG TAB PO SCH ×2 (08:42→20:49)
[2019-08-22] MEDS: Polyethylene Glycol 3350 17 GM Packet PO SCH (08:43)
[2019-08-22] MEDS: Aspirin 81 mg Enteric Coated Tablet PO SCH (08:43)
[2019-08-22] MEDS ORDERED: Insulin Regular 300 UNITS/3 ML VIAL ONE (18:26)
[2019-08-22] MEDS: Insulin Regular 300 UNITS/3 ML VIAL SC PRN (18:32)
[2019-08-22] MEDS: Warfarin Sodium 5 MG TAB PO SCH (18:35)
[2019-08-22] MEDS: DorzolamidE/Timolol 2%/0.5% Ophth Soln 10 ml Bottle EA EYE SCH (20:45)
[2019-08-22] MEDS: Latanoprost 0.005% Ophth Soln 2.5 ml Bottle EA EYE SCH (20:45)
[2019-08-22] MEDS: Acetaminophen 325 MG TAB PO PRN (20:47)
[2019-08-22] MEDS: Melatonin 3 MG TAB PO SCH (20:48)
[2019-08-22] MEDS: Atorvastatin Calcium 10 MG TAB PO SCH (20:49)
[2019-08-22] MEDS: Lantus 1000 UNITS/10 ML VIAL SC SCH (20:49)
[2019-08-23] MEDS: hydrALAZINE 10 MG TAB PO SCH ×3 (08:44→20:53)
[2019-08-23] MEDS: Amlodipine 5 MG TAB PO SCH (08:45)
[2019-08-23] MEDS: Furosemide 20 MG TAB PO SCH ×2 (08:48→14:13)
[2019-08-23] MEDS: Potassium Chloride 10 MEQ TAB PO SCH (08:48)
[2019-08-23] MEDS: Isosorbide Mononitrate 20 MG TAB PO SCH ×2 (08:48→20:52)
[2019-08-23] MEDS: Carvedilol 6.25 MG TAB PO SCH ×2 (08:49→20:51)
[2019-08-23] MEDS: Senokot S 8.6-50 MG TAB PO SCH ×2 (08:50→20:54)
[2019-08-23] MEDS: Polyethylene Glycol 3350 17 GM Packet PO SCH (08:50)
[2019-08-23] MEDS: Aspirin 81 mg Enteric Coated Tablet PO SCH (08:50)
[2019-08-23] MEDS: Warfarin Sodium 5 MG TAB PO SCH (16:41)
[2019-08-23] MEDS: Atorvastatin Calcium 10 MG TAB PO SCH (20:51)
[2019-08-23] MEDS: Melatonin 3 MG TAB PO SCH (20:53)
[2019-08-23] MEDS: Lantus 1000 UNITS/10 ML VIAL SC SCH (20:54)
[2019-08-23] MEDS: Latanoprost 0.005% Ophth Soln 2.5 ml Bottle EA EYE SCH (22:30)
[2019-08-23] MEDS: DorzolamidE/Timolol 2%/0.5% Ophth Soln 10 ml Bottle EA EYE SCH (22:30)
[2019-08-24] MEDS: Polyethylene Glycol 3350 17 GM Packet PO SCH (08:45)
[2019-08-24] MEDS: Aspirin 81 mg Enteric Coated Tablet PO SCH (08:47)
[2019-08-24] MEDS: Amlodipine 5 MG TAB PO SCH (08:51)
[2019-08-24] MEDS: Carvedilol 6.25 MG TAB PO SCH ×2 (08:53→20:52)
[2019-08-24] MEDS: hydrALAZINE 10 MG TAB PO SCH ×3 (08:55→20:52)
[2019-08-24] MEDS: Isosorbide Mononitrate 20 MG TAB PO SCH ×2 (08:55→20:53)
[2019-08-24] MEDS: Senokot S 8.6-50 MG TAB PO SCH ×2 (08:56→20:52)
[2019-08-24] MEDS: Furosemide 20 MG TAB PO SCH ×2 (09:04→14:24)
[2019-08-24] MEDS: Potassium Chloride 10 MEQ TAB PO SCH (09:06)
[2019-08-24] MEDS: Warfarin Sodium 5 MG TAB PO SCH (17:23)
[2019-08-24] MEDS: Atorvastatin Calcium 10 MG TAB PO SCH (20:53)
[2019-08-24] MEDS: DorzolamidE/Timolol 2%/0.5% Ophth Soln 10 ml Bottle EA EYE SCH (20:53)
[2019-08-24] MEDS: Melatonin 3 MG TAB PO SCH (20:53)
[2019-08-24] MEDS: Latanoprost 0.005% Ophth Soln 2.5 ml Bottle EA EYE SCH (20:54)
[2019-08-25 03:48] LABS: Hemoglobin 8.9 g/dL (12.0-16.0); Platelet Count 141 thou/uL (130-400)
[2019-08-25 03:57] LABS: INR-International Normal Ratio 2.6; Prothrombin Time 27.9 SEC (12.0-14.7)
[2019-08-25] MEDS: hydrALAZINE 10 MG TAB PO SCH ×3 (08:39→21:57)
[2019-08-25] MEDS: Aspirin 81 mg Enteric Coated Tablet PO SCH (08:41)
[2019-08-25] MEDS: Furosemide 20 MG TAB PO SCH ×2 (08:43→15:17)
[2019-08-25] MEDS: Isosorbide Mononitrate 20 MG TAB PO SCH ×2 (08:44→21:57)
[2019-08-25] MEDS: Amlodipine 5 MG TAB PO SCH (08:46)
[2019-08-25] MEDS: Potassium Chloride 10 MEQ TAB PO SCH (08:46)
[2019-08-25] MEDS: Carvedilol 6.25 MG TAB PO SCH ×2 (08:46→21:58)
[2019-08-25] MEDS: Polyethylene Glycol 3350 17 GM Packet PO SCH (08:48)
[2019-08-25] MEDS: Senokot S 8.6-50 MG TAB PO SCH ×2 (08:48→21:58)
[2019-08-25] MEDS: Insulin Regular 300 UNITS/3 ML VIAL SC PRN ×2 (12:56→17:46)
[2019-08-25] MEDS: Warfarin Sodium 5 MG TAB PO SCH (17:46)
[2019-08-25] MEDS: DorzolamidE/Timolol 2%/0.5% Ophth Soln 10 ml Bottle EA EYE SCH (21:56)
[2019-08-25] MEDS: Melatonin 3 MG TAB PO SCH (21:57)
[2019-08-25] MEDS: Acetaminophen 325 MG TAB PO PRN (21:57)
[2019-08-25] MEDS: Atorvastatin Calcium 10 MG TAB PO SCH (21:58)
[2019-08-25] MEDS: Latanoprost 0.005% Ophth Soln 2.5 ml Bottle EA EYE SCH (21:58)
[2019-08-26] MEDS: Polyethylene Glycol 3350 17 GM Packet PO SCH (09:15)
[2019-08-26] MEDS: Furosemide 20 MG TAB PO SCH ×2 (09:16→13:05)
[2019-08-26] MEDS: Carvedilol 6.25 MG TAB PO SCH ×2 (09:16→22:56)
[2019-08-26] MEDS: hydrALAZINE 10 MG TAB PO SCH ×3 (09:19→22:26)
[2019-08-26] MEDS: Potassium Chloride 10 MEQ TAB PO SCH (09:19)
[2019-08-26] MEDS: Amlodipine 5 MG TAB PO SCH (09:19)
[2019-08-26] MEDS: Isosorbide Mononitrate 20 MG TAB PO SCH ×2 (09:20→22:25)
[2019-08-26] MEDS: Aspirin 81 mg Enteric Coated Tablet PO SCH (09:21)
[2019-08-26] MEDS: Senokot S 8.6-50 MG TAB PO SCH ×2 (09:21→22:26)
[2019-08-26] MEDS: Insulin Regular 300 UNITS/3 ML VIAL SC PRN ×2 (12:40→17:34)
[2019-08-26] MEDS: Warfarin Sodium 5 MG TAB PO SCH (17:32)
[2019-08-26] MEDS ORDERED: Metolazone 5 MG TAB PO SCH (20:15)
[2019-08-26] MEDS: DorzolamidE/Timolol 2%/0.5% Ophth Soln 10 ml Bottle EA EYE SCH (22:25)
[2019-08-26] MEDS: Atorvastatin Calcium 10 MG TAB PO SCH (22:26)
[2019-08-26] MEDS: Melatonin 3 MG TAB PO SCH (22:26)
[2019-08-26] MEDS: Latanoprost 0.005% Ophth Soln 2.5 ml Bottle EA EYE SCH (22:27)
[2019-08-27 06:39] LABS: INR-International Normal Ratio 2.7; PTT 45.8 SEC (22.9-36.1); Prothrombin Time 28.7 SEC (12.0-14.7)
[2019-08-27] MEDS: Aspirin 81 mg Enteric Coated Tablet PO SCH (09:21)
[2019-08-27] MEDS: hydrALAZINE 10 MG TAB PO SCH ×3 (09:21→20:55)
[2019-08-27] MEDS: Isosorbide Mononitrate 20 MG TAB PO SCH ×2 (09:22→20:55)
[2019-08-27] MEDS: Carvedilol 6.25 MG TAB PO SCH ×2 (09:22→20:54)
[2019-08-27] MEDS: Potassium Chloride 10 MEQ TAB PO SCH (09:22)
[2019-08-27] MEDS: Amlodipine 5 MG TAB PO SCH (09:24)
[2019-08-27] MEDS: Furosemide 20 MG TAB PO SCH ×2 (09:24→15:27)
[2019-08-27] MEDS: Polyethylene Glycol 3350 17 GM Packet PO SCH (09:25)
[2019-08-27] MEDS: Senokot S 8.6-50 MG TAB PO SCH ×2 (09:25→20:56)
[2019-08-27] MEDS: Insulin Regular 300 UNITS/3 ML VIAL SC PRN ×3 (12:59→21:10)
[2019-08-27] MEDS: Warfarin Sodium 5 MG TAB PO SCH (17:48)
[2019-08-27] MEDS: Atorvastatin Calcium 10 MG TAB PO SCH (20:54)
[2019-08-27] MEDS: Melatonin 3 MG TAB PO SCH (20:56)
[2019-08-27] MEDS: DorzolamidE/Timolol 2%/0.5% Ophth Soln 10 ml Bottle EA EYE SCH (20:56)
[2019-08-27] MEDS: Latanoprost 0.005% Ophth Soln 2.5 ml Bottle EA EYE SCH (20:57)
[2019-08-28] MEDS: Acetaminophen 325 MG TAB PO PRN (01:32)
[2019-08-28 05:41] LABS: INR-International Normal Ratio 2.4; PTT 45.8 SEC (22.9-36.1); Prothrombin Time 26.3 SEC (12.0-14.7)
[2019-08-28] MEDS: Polyethylene Glycol 3350 17 GM Packet PO SCH (09:18)
[2019-08-28] MEDS: Carvedilol 6.25 MG TAB PO SCH ×2 (09:19→21:43)
[2019-08-28] MEDS: Potassium Chloride 10 MEQ TAB PO SCH (09:19)
[2019-08-28] MEDS: Furosemide 20 MG TAB PO SCH ×2 (09:19→14:55)
[2019-08-28] MEDS: Amlodipine 5 MG TAB PO SCH (09:19)
[2019-08-28] MEDS: hydrALAZINE 10 MG TAB PO SCH ×3 (09:19→21:38)
[2019-08-28] MEDS: Senokot S 8.6-50 MG TAB PO SCH ×2 (09:20→21:37)
[2019-08-28] MEDS: Isosorbide Mononitrate 20 MG TAB PO SCH ×2 (09:21→21:42)
[2019-08-28] MEDS: Aspirin 81 mg Enteric Coated Tablet PO SCH (09:21)
[2019-08-28] MEDS: Warfarin Sodium 5 MG TAB PO SCH (17:44)
[2019-08-28] MEDS: Insulin Regular 300 UNITS/3 ML VIAL SC PRN (17:59)
[2019-08-28] MEDS: DorzolamidE/Timolol 2%/0.5% Ophth Soln 10 ml Bottle EA EYE SCH (21:22)
[2019-08-28] MEDS: Latanoprost 0.005% Ophth Soln 2.5 ml Bottle EA EYE SCH (21:35)
[2019-08-28] MEDS: Melatonin 3 MG TAB PO SCH (21:42)
[2019-08-28] MEDS: Atorvastatin Calcium 10 MG TAB PO SCH (21:43)
[2019-08-29 05:29] LABS: INR-International Normal Ratio 2.5; Prothrombin Time 26.7 SEC (12.0-14.7)
[2019-08-29 05:30] LABS: PTT 39.9 SEC (22.9-36.1)
[2019-08-29] MEDS: Polyethylene Glycol 3350 17 GM Packet PO SCH (08:50)
[2019-08-29] MEDS: Furosemide 20 MG TAB PO SCH ×2 (08:51→13:36)
[2019-08-29] MEDS: Senokot S 8.6-50 MG TAB PO SCH ×2 (08:52→21:33)
[2019-08-29] MEDS: Amlodipine 5 MG TAB PO SCH (08:52)
[2019-08-29] MEDS: Isosorbide Mononitrate 20 MG TAB PO SCH ×2 (08:53→21:33)
[2019-08-29] MEDS: Carvedilol 6.25 MG TAB PO SCH ×2 (08:54→21:34)
[2019-08-29] MEDS: hydrALAZINE 10 MG TAB PO SCH ×3 (08:54→21:33)
[2019-08-29] MEDS: Potassium Chloride 10 MEQ TAB PO SCH (08:54)
[2019-08-29] MEDS: Aspirin 81 mg Enteric Coated Tablet PO SCH (08:54)
[2019-08-29] MEDS: Insulin Regular 300 UNITS/3 ML VIAL SC PRN ×2 (13:33→18:18)
[2019-08-29] MEDS: Warfarin Sodium 5 MG TAB PO SCH (17:21)
[2019-08-29] MEDS: Acetaminophen 325 MG TAB PO PRN (21:32)
[2019-08-29] MEDS: Melatonin 3 MG TAB PO SCH (21:33)
[2019-08-29] MEDS: Atorvastatin Calcium 10 MG TAB PO SCH (21:33)
[2019-08-29] MEDS: DorzolamidE/Timolol 2%/0.5% Ophth Soln 10 ml Bottle EA EYE SCH (22:02)
[2019-08-29] MEDS: Latanoprost 0.005% Ophth Soln 2.5 ml Bottle EA EYE SCH (22:02)
[2019-08-30 05:34] LABS: INR-International Normal Ratio 2.7; PTT 40.9 SEC (22.9-36.1); Prothrombin Time 28.7 SEC (12.0-14.7)
[2019-08-30] MEDS: Carvedilol 6.25 MG TAB PO SCH ×2 (09:09→21:36)
[2019-08-30] MEDS: Potassium Chloride 10 MEQ TAB PO SCH (09:09)
[2019-08-30] MEDS: Amlodipine 5 MG TAB PO SCH (09:10)
[2019-08-30] MEDS: hydrALAZINE 10 MG TAB PO SCH ×3 (09:10→21:37)
[2019-08-30] MEDS: Furosemide 20 MG TAB PO SCH ×2 (09:10→15:18)
[2019-08-30] MEDS: Senokot S 8.6-50 MG TAB PO SCH ×2 (09:10→21:43)
[2019-08-30] MEDS: Aspirin 81 mg Enteric Coated Tablet PO SCH (09:10)
[2019-08-30] MEDS: Isosorbide Mononitrate 20 MG TAB PO SCH ×2 (09:12→21:41)
[2019-08-30] MEDS: Polyethylene Glycol 3350 17 GM Packet PO SCH (09:12)
[2019-08-30] MEDS: Warfarin Sodium 5 MG TAB PO SCH (17:38)
[2019-08-30] MEDS: Insulin Regular 300 UNITS/3 ML VIAL SC PRN (18:14)
[2019-08-30] MEDS: Melatonin 3 MG TAB PO SCH (21:41)
[2019-08-30] MEDS: Atorvastatin Calcium 10 MG TAB PO SCH (21:42)
[2019-08-30] MEDS: DorzolamidE/Timolol 2%/0.5% Ophth Soln 10 ml Bottle EA EYE SCH (21:46)
[2019-08-30] MEDS: Latanoprost 0.005% Ophth Soln 2.5 ml Bottle EA EYE SCH (21:46)
[2019-08-31 05:31] LABS: INR-International Normal Ratio 2.8; PTT 41.2 SEC (22.9-36.1)
[2019-08-31] MEDS: Acetaminophen 325 MG TAB PO PRN ×2 (09:35→22:27)
[2019-08-31] MEDS ORDERED: Amlodipine 5 MG TAB ONE (09:41)
[2019-08-31] MEDS: Amlodipine 5 MG TAB PO SCH (09:43)
[2019-08-31] MEDS: Polyethylene Glycol 3350 17 GM Packet PO SCH (09:45)
[2019-08-31] MEDS: Carvedilol 6.25 MG TAB PO SCH ×2 (09:45→22:27)
[2019-08-31] MEDS: Senokot S 8.6-50 MG TAB PO SCH ×2 (09:46→22:30)
[2019-08-31] MEDS: Furosemide 20 MG TAB PO SCH ×2 (09:46→15:35)
[2019-08-31] MEDS: Aspirin 81 mg Enteric Coated Tablet PO SCH (09:46)
[2019-08-31] MEDS: Potassium Chloride 10 MEQ TAB PO SCH (09:46)
[2019-08-31] MEDS: hydrALAZINE 10 MG TAB PO SCH ×3 (09:46→22:28)
[2019-08-31] MEDS: Isosorbide Mononitrate 20 MG TAB PO SCH ×2 (09:47→22:27)
[2019-08-31] MEDS: Insulin Regular 300 UNITS/3 ML VIAL SC PRN ×2 (13:15→17:59)
[2019-08-31] MEDS: Warfarin Sodium 5 MG TAB PO SCH (18:00)
[2019-08-31] MEDS: DorzolamidE/Timolol 2%/0.5% Ophth Soln 10 ml Bottle EA EYE SCH (22:29)
[2019-08-31] MEDS: Melatonin 3 MG TAB PO SCH (22:29)
[2019-08-31] MEDS: Latanoprost 0.005% Ophth Soln 2.5 ml Bottle EA EYE SCH (22:29)
[2019-08-31] MEDS: Atorvastatin Calcium 10 MG TAB PO SCH (22:30)
[2019-09-01 05:33] LABS: INR-International Normal Ratio 2.7; PTT 40.8 SEC (22.9-36.1); Prothrombin Time 28.5 SEC (12.0-14.7)
[2019-09-01 09:43] VITALS: BMI 42.1
[2019-09-01] MEDS: Isosorbide Mononitrate 20 MG TAB PO SCH ×2 (09:55→21:54)
[2019-09-01] MEDS: Carvedilol 6.25 MG TAB PO SCH ×2 (10:04→21:55)
[2019-09-01] MEDS: hydrALAZINE 10 MG TAB PO SCH ×3 (10:04→21:54)
[2019-09-01] MEDS: Senokot S 8.6-50 MG TAB PO SCH ×2 (10:06→21:56)
[2019-09-01] MEDS: Potassium Chloride 10 MEQ TAB PO SCH (10:06)
[2019-09-01] MEDS: Aspirin 81 mg Enteric Coated Tablet PO SCH (10:06)
[2019-09-01] MEDS: Furosemide 20 MG TAB PO SCH ×2 (10:06→16:03)
[2019-09-01] MEDS: Polyethylene Glycol 3350 17 GM Packet PO SCH (10:07)
[2019-09-01] MEDS ORDERED: Metolazone 5 MG TAB PO SCH (10:15)
[2019-09-01] MEDS ORDERED: Amlodipine 5 MG TAB ONE (10:24)
[2019-09-01] MEDS: Amlodipine 5 MG TAB PO SCH (10:27)
[2019-09-01] MEDS: Acetaminophen 325 MG TAB PO PRN (10:31)
[2019-09-01] MEDS: Warfarin Sodium 5 MG TAB PO SCH (16:05)
[2019-09-01] MEDS: Atorvastatin Calcium 10 MG TAB PO SCH (21:54)
[2019-09-01] MEDS: Melatonin 3 MG TAB PO SCH (21:54)
[2019-09-01] MEDS: DorzolamidE/Timolol 2%/0.5% Ophth Soln 10 ml Bottle EA EYE SCH (21:54)
[2019-09-01] MEDS: Latanoprost 0.005% Ophth Soln 2.5 ml Bottle EA EYE SCH (21:55)
[2019-09-02] MEDS: Acetaminophen 325 MG TAB PO PRN ×2 (03:26→21:56)
[2019-09-02 05:29] LABS: INR-International Normal Ratio 2.7; PTT 41.2 SEC (22.9-36.1); Prothrombin Time 28.5 SEC (12.0-14.7)
[2019-09-02] MEDS: Carvedilol 6.25 MG TAB PO SCH ×2 (11:13→21:56)
[2019-09-02] MEDS: Isosorbide Mononitrate 20 MG TAB PO SCH ×2 (11:13→21:57)
[2019-09-02] MEDS: hydrALAZINE 10 MG TAB PO SCH ×3 (11:13→21:57)
[2019-09-02] MEDS: Furosemide 20 MG TAB PO SCH ×2 (11:14→15:36)
[2019-09-02] MEDS: Senokot S 8.6-50 MG TAB PO SCH ×2 (11:15→21:58)
[2019-09-02] MEDS: Amlodipine 5 MG TAB PO SCH (11:15)
[2019-09-02] MEDS: Aspirin 81 mg Enteric Coated Tablet PO SCH (11:15)
[2019-09-02] MEDS: Potassium Chloride 10 MEQ TAB PO SCH (11:15)
[2019-09-02] MEDS: Polyethylene Glycol 3350 17 GM Packet PO SCH (13:26)
[2019-09-02] MEDS: Insulin Regular 300 UNITS/3 ML VIAL SC PRN ×2 (13:26→17:27)
[2019-09-02] MEDS: Warfarin Sodium 5 MG TAB PO SCH (17:24)
[2019-09-02] MEDS: DorzolamidE/Timolol 2%/0.5% Ophth Soln 10 ml Bottle EA EYE SCH (21:57)
[2019-09-02] MEDS: Melatonin 3 MG TAB PO SCH (21:57)
[2019-09-02] MEDS: Atorvastatin Calcium 10 MG TAB PO SCH (21:57)
[2019-09-02] MEDS: Latanoprost 0.005% Ophth Soln 2.5 ml Bottle EA EYE SCH (21:58)
[2019-09-03 05:42] LABS: INR-International Normal Ratio 2.6; PTT 41.6 SEC (22.9-36.1); Prothrombin Time 27.3 SEC (12.0-14.7)
[2019-09-03] MEDS: Potassium Chloride 10 MEQ TAB PO SCH (09:06)
[2019-09-03] MEDS: Aspirin 81 mg Enteric Coated Tablet PO SCH (09:08)
[2019-09-03] MEDS: Amlodipine 5 MG TAB PO SCH (09:08)
[2019-09-03] MEDS: Furosemide 20 MG TAB PO SCH ×2 (09:09→13:56)
[2019-09-03] MEDS: hydrALAZINE 10 MG TAB PO SCH ×3 (09:09→21:43)
[2019-09-03] MEDS: Polyethylene Glycol 3350 17 GM Packet PO SCH (09:09)
[2019-09-03] MEDS: Senokot S 8.6-50 MG TAB PO SCH ×2 (09:09→21:44)
[2019-09-03] MEDS: Carvedilol 6.25 MG TAB PO SCH ×2 (09:10→21:43)
[2019-09-03] MEDS: Isosorbide Mononitrate 20 MG TAB PO SCH ×2 (09:10→21:44)
[2019-09-03] MEDS: Insulin Regular 300 UNITS/3 ML VIAL SC PRN ×2 (12:51→17:54)
[2019-09-03] MEDS: Warfarin Sodium 5 MG TAB PO SCH (18:05)
[2019-09-03] MEDS: Acetaminophen 325 MG TAB PO PRN (21:43)
[2019-09-03] MEDS: DorzolamidE/Timolol 2%/0.5% Ophth Soln 10 ml Bottle EA EYE SCH (21:43)
[2019-09-03] MEDS: Atorvastatin Calcium 10 MG TAB PO SCH (21:44)
[2019-09-03] MEDS: Melatonin 3 MG TAB PO SCH (21:44)
[2019-09-03] MEDS: Latanoprost 0.005% Ophth Soln 2.5 ml Bottle EA EYE SCH (21:44)
[2019-09-04] MEDS: Amlodipine 5 MG TAB PO SCH (08:40)
[2019-09-04] MEDS: Potassium Chloride 10 MEQ TAB PO SCH (08:42)
[2019-09-04] MEDS: Carvedilol 6.25 MG TAB PO SCH ×2 (08:42→20:53)
[2019-09-04] MEDS: Aspirin 81 mg Enteric Coated Tablet PO SCH (08:42)
[2019-09-04] MEDS: Isosorbide Mononitrate 20 MG TAB PO SCH ×2 (08:43→20:54)
[2019-09-04] MEDS: hydrALAZINE 10 MG TAB PO SCH ×3 (08:43→20:53)
[2019-09-04] MEDS: Furosemide 20 MG TAB PO SCH ×2 (08:43→14:58)
[2019-09-04] MEDS: Polyethylene Glycol 3350 17 GM Packet PO SCH (08:44)
[2019-09-04] MEDS: Senokot S 8.6-50 MG TAB PO SCH ×2 (08:45→20:53)
[2019-09-04] MEDS: Insulin Regular 300 UNITS/3 ML VIAL SC PRN (17:51)
[2019-09-04] MEDS: Warfarin Sodium 5 MG TAB PO SCH (18:34)
[2019-09-04] MEDS: Acetaminophen 325 MG TAB PO PRN (20:53)
[2019-09-04] MEDS: Atorvastatin Calcium 10 MG TAB PO SCH (20:53)
[2019-09-04] MEDS: Melatonin 3 MG TAB PO SCH (20:53)
[2019-09-04] MEDS: DorzolamidE/Timolol 2%/0.5% Ophth Soln 10 ml Bottle EA EYE SCH (20:54)
[2019-09-04] MEDS: Latanoprost 0.005% Ophth Soln 2.5 ml Bottle EA EYE SCH (20:55)
[2019-09-05 05:33] LABS: INR-International Normal Ratio 2.5; Prothrombin Time 26.5 SEC (12.0-14.7)
[2019-09-05 05:40] LABS: Hemoglobin 9.1 g/dL (12.0-16.0); Platelet Count 118 thou/uL (130-400)
[2019-09-05 06:02] VITALS: TEMP 98.5
[2019-09-05] MEDS: Isosorbide Mononitrate 20 MG TAB PO SCH (08:08)
[2019-09-05] MEDS: Senokot S 8.6-50 MG TAB PO SCH (08:09)
[2019-09-05] MEDS: hydrALAZINE 10 MG TAB PO SCH (08:11)
[2019-09-05] MEDS: Amlodipine 5 MG TAB PO SCH (08:12)
[2019-09-05] MEDS: Carvedilol 6.25 MG TAB PO SCH (08:13)
[2019-09-05] MEDS: Aspirin 81 mg Enteric Coated Tablet PO SCH (08:13)
[2019-09-05] MEDS: Furosemide 20 MG TAB PO SCH (08:14)
[2019-09-05] MEDS: Potassium Chloride 10 MEQ TAB PO SCH (08:15)
[2019-09-05] MEDS: Polyethylene Glycol 3350 17 GM Packet PO SCH (08:16)
[2019-09-05 08:23] VITALS: BP 134/83
[2019-09-05] MEDS: Insulin Regular 300 UNITS/3 ML VIAL SC PRN (12:32)
--- NOTE | 2019-09-05 21:38 | DIS ---
DATE OF ADMISSION: 08/14/2019 DATE OF DISCHARGE: 09/05/2019 ADMISSION DIAGNOSES: 1. Physical deconditioning. 2. Chronic diastolic congestive heart failure. 3. Atrial fibrillation. 4. Pulmonary hypertension with oxygen dependence. 5. Type 2 diabetes mellitus. 6. Chronic kidney disease, stage 3. 7. Encephalopathy. 8. Right wrist pain from gout. 9. Urinary retention. 10. Dysphagia. PROCEDURES: None. HOSPITAL COURSE: This is an 89-year-old female with multiple comorbidities who transitioned here for physical therapy and occupational therapy status post acute admission for respiratory failure at [facility] in [place]. While at that facility, she was treated for her chronic conditions of diastolic heart failure, atrial fibrillation, pulmonary hypertension and required placement of a Sevilla catheter for urinary retention. After being stabilized, she transitioned for the aforementioned therapy. Upon arrival, she was still somewhat encephalopathic; however, her mental status did improve back toward her baseline during her stay. She was able to discontinue Sevilla catheterization during her stay. She did resume on her usual medications; however will have metolazone 2.5 mg on Sunday, Sunday, Sunday added to her regimen secondary to fluctuating weight gain. The patient does have noted dysphagia and thus had a modified barium swallow and this showed an aging swallow exacerbated by oropharyngeal weakness. Recommend continued pureed textures, thin liquids via controlled cup sip with crushed medication, possible GI component given residuals noted above UES, recommend reflux precautions. The patient has had minimal improvement in her functional status and working with Physical Therapy and Occupational therapy, and thus it has been decided for her to transition to [facility] for long-term care. DISPOSITION: The patient will discharge to [facility]. DISCHARGE MEDICATIONS: Include: 1. Acetaminophen 650 mg q.6 hours p.r.n. 2. DuoNebs 3 mL q.8 hours. 3. Amlodipine 2.5 mg daily. 4. Aspirin 81 mg daily. 5. Atorvastatin 10 mg at bedtime. 6. Metolazone 2.5 mg on Sunday, Sunday, Sunday. 7. Carvedilol 6.25 mg b.i.d. 8. Cholecalciferol 5000 units daily. 9. Dorzolamide/timolol 2%/0.5% ophthalmic solution to each eye at bedtime. 10. Lasix 40 mg b.i.d. 11. Hydralazine 10 mg t.i.d. 12. Isosorbide mononitrate 10 mg b.i.d. 13. Latanoprost 0.005% ophthalmic solution one drop to each eye at bedtime. 14. Magnesium hydroxide 30 mL daily p.r.n. 15. Melatonin 6 mg at bedtime. 16. Pantoprazole 40 mg daily. 17. MiraLAX 17 g daily. 18. Potassium chloride 10 mEq daily. 19. Senokot one tab b.i.d. 20. Zoloft 100 mg daily. 21. Coumadin 5 mg daily. 22. Please note that the patient's Lantus 10 units has been discontinued secondary to several episodes of hypoglycemia during her stay. Job ID: [id number] MTDD
--- NOTE | 2019-09-16 04:32 | PQF ---
[employer] [place] DILIA CAMARENA [id number] CLINICAL DOCUMENTATION CLARIFICATION FORM: POST DISCHARGE Addendum to original discharge summary date: 09/05/19 Late entry note date: 09/16/19 DATE: 09/16/2019 ATTN:DILIA CAMARENA Please exercise your independent, professional judgment in responding to the clarification form. Clinical indicators are provided on the bottom of this form for your review Please check appropriate box(s): [ ] Encephalopathy: Type: [ ] Acute [ x ] Subacute [ ] Chronic Etiology: [ ] Hypertensive [ ] Metabolic [ ] Toxic [ ] Drug induced: [ ] Unspecified [ x] in the setting of underlying dementia [ ] Other (please specify) [ ] Transient Alteration of Awareness [ ] Other diagnosis [ ] Unable to determine In addition, please specify: Present on Admission (POA): [ x] Yes [ ] No [ ] Unable to determine For continuity of documentation, please document condition throughout progress notes and discharge summary. Thank You. CLINICAL INDICATORS - SIGNS / SYMPTOMS / LABS Upon arrival she was still somewhat encephalopathic - Documented in DS on by DILIA CAMARENA her mental status did improve back towards her baseline during her stay - Documented in DS on 09/05 by DILIA CAMARENA Physical Deconditioning - Documented in DS on 09/05 by DILIA CAMARENA Encephalopathy - Documented in DS on 09/05 by DILIA CAMARENA Dysphagia and urinary retention - Documented in DS on 09/05 by DILIA CAMARENA she was able to discontinue Sevilla catheterization during her stay - Documented in DS on 09/05 by DILIA CAMARENA BP 152/68 on 08/15 and 149/63 on 08/31 - Documented in Vital signs RISK FACTORS Chronic diastolic CHF -- Documented in DS on 09/05 by DILIA CAMARENA CKD 3 TREATMENTS: IV fluid Sunday added to her regimen 2/2 fluctuating weight gain (This form is maintained as a part of the permanent medical record) 2014 [employer] All Rights Reserved [employer] [not provided] MTDD
== END 2019-09-05 12:40 | DRG 948 ==
LOC: BURMED 13:30
PROVIDERS: ADMIT Family Medicine; ATTEND Family Medicine
DX: R53.81 Other malaise (principal); I50.32 Chronic diastolic (congestive) heart failure; G93.49 Other encephalopathy; I13.0 Hypertensive heart and chronic kidney disease with heart failure and stage 1 through stage 4 chronic kidney disease, or unspecified chronic kidney disease; I48.91 Unspecified atrial fibrillation; I27.20 Pulmonary hypertension, unspecified; R13.10 Dysphagia, unspecified; R33.9 Retention of urine, unspecified; M10.9 Gout, unspecified; N18.3 Chronic kidney disease, stage 3 (moderate); Z99.81 Dependence on supplemental oxygen; R53.1 Weakness
CPT/HCPCS: 36415; 36416; 80053; 81001; 83880; 84550; 85014; 85018; 85025; 85049; 85610; 85730; 87086; 94640; A4353; G0283-GP; J1815; J7620

== ENCOUNTER 2019-11-14 17:15 | Outpatient (CLI) | payer MEDICARE ==
--- NOTE | 2019-11-14 18:18 | RAD ---
CHEST TWO VIEWS: 11/14/19 Comparison is made with the 10/05/19 study. The heart is enlarged and there are mild congestive changes in the vessels. There is slight increased density in the left lung base which could be fluid, pneumonia, or both. The findings should be corre lated with clinical presentation. The right lung is clear. Calcific tendinitis is noted in the right shoulder. IMPRESSION: 1. Mild congestive changes. 2. Mild increased density in the left base. Fluid versus pneumonia versus both. POS: HOME
== END 2019-11-14 17:16 | disposition home or self-care (01) ==
LOC: BURRAD 17:15
PROVIDERS: ATTEND Family Medicine
DX: J44.1 Chronic obstructive pulmonary disease with (acute) exacerbation (principal); J98.4 Other disorders of lung; R09.89 Other specified symptoms and signs involving the circulatory and respiratory systems
CPT/HCPCS: 71046

== ENCOUNTER 2020-05-27 11:38 | Outpatient (CLI) | payer MEDICARE, OTHER ==
[2020-05-27 12:05] LABS: ALT (SGPT) 15 U/L (8-55); AST (SGOT) 25 U/L (5-34); Albumin 3.3 g/dL (3.4-4.8); Alkaline Phosphatase 118 U/L (40-110); Anion Gap 18 mmol/L (10-20); BUN (Urea Nitrogen) 65 mg/dL (9.8-20.1); Bilirubin, Total 0.3 mg/dL (0.2-1.2); Calc. Creatinine Clearance 0 mL/min (70-130); Calcium 9.9 mg/dL (7.8-10.44); Carbon Dioxide 34 mmol/L (23-31); Chloride 91 mmol/L (98-107); Estimated GFR-MDRD 30; Globulin 3.4 g/dL (2.4-3.5); Glucose 249 mg/dL (83-110); Potassium 3.3 mmol/L (3.5-5.1); Protein, Total 6.7 g/dL (6.0-8.3); Sodium 140 mmol/L (136-145)
== END 2020-05-27 11:39 | disposition home or self-care (01) ==
LOC: BURMANOR 11:38
PROVIDERS: ATTEND Registered Nurse Community Health
DX: E87.6 Hypokalemia (principal)
CPT/HCPCS: 80053

== ENCOUNTER 2020-06-03 15:30 | Outpatient (CLI) | payer MEDICARE, OTHER ==
[2020-06-03 15:59] LABS: ALT (SGPT) 21 U/L (8-55); AST (SGOT) 37 U/L (5-34); Albumin 3.5 g/dL (3.4-4.8); Alkaline Phosphatase 122 U/L (40-110); Anion Gap 20 mmol/L (10-20); BUN (Urea Nitrogen) 44 mg/dL (9.8-20.1); Bilirubin, Total 0.3 mg/dL (0.2-1.2); Calc. Creatinine Clearance 0 mL/min (70-130); Calcium 10.1 mg/dL (7.8-10.44); Carbon Dioxide 31 mmol/L (23-31); Chloride 90 mmol/L (98-107); Estimated GFR-MDRD 42; Globulin 3.5 g/dL (2.4-3.5); Glucose 162 mg/dL (83-110); Potassium 3.8 mmol/L (3.5-5.1); Sodium 137 mmol/L (136-145)
== END 2020-06-03 15:31 | disposition home or self-care (01) ==
LOC: BURMANOR 15:30
PROVIDERS: ATTEND Registered Nurse Community Health
DX: R63.5 Abnormal weight gain (principal)
CPT/HCPCS: 80053; 83880

== ENCOUNTER 2020-09-20 17:35 | Inpatient (IN) | payer MEDICARE, MEDICAID ==
[2020-09-20] MEDS ORDERED: Acetaminophen 500 MG TAB ONE (18:36)
[2020-09-20] MEDS ORDERED: Cefepime 2 GM VIAL ONE (18:37)
[2020-09-20] MEDS ORDERED: Sodium Chloride 0.9% 100 ML ONE (18:37)
[2020-09-20 18:50] LABS: Base Excess-Venous 0.8 mmol/L (-2.0 to 3.0); Bicarbonate (HCO3v) 26.6 mmol/L (22.0-28.0); CO2 Tension (PvCO2) 46.7 mmHg (40.0-50.0); Calcium, Ionized 1.22 mmol/L (1.15-1.33); Chloride 102 mmol/L (98-107); Hemoglobin - Calc 11.1 g/dL (12.0-16.0); Potassium 3.8 mmol/L (3.5-5.1); Sodium 142 mmol/L (138-145); T. Carbon Dioxide 28.1 mmol/L (22.0-28.0); vO2 Saturation-calc 92.5 % (60.0-85.0)
[2020-09-20 18:55] LABS: Clarity Slightly Cloudy (Clear); Leukocyte Large (Negative); Nitrite Positive (Negative); Protein, Urine (Dipstick) 30 mg/dL (Neg-Trace); pH, Urine 5.5 (5.0-9.0)
[2020-09-20 18:56] LABS: Bilirubin Negative (Negative); Blood, Urine Large (Negative); Glucose, Urine (Dipstick) 500 mg/dL (Negative); Ketone, Urine Negative (Negative); RBC/HPF 21-50 HPF (0-3); Urobilinogen 0.2 mg/dL (Less than 2); WBC/HPF 21-50 HPF (0-3)
[2020-09-20 18:57] LABS: Bacteria/HPF 1+ HPF (None Seen); Squamous Epithelial 0-3 HPF (0-3); Transitional Epithelial 0-3 HPF (None Seen)
[2020-09-20 18:58] LABS: ALT (SGPT) 24 U/L (8-55); AST (SGOT) 30 U/L (5-34); Albumin 3.3 g/dL (3.4-4.8); Alkaline Phosphatase 163 U/L (40-110); Anion Gap 16 mmol/L (10-20); BUN (Urea Nitrogen) 58 mg/dL (9.8-20.1); Bilirubin, Total Less than 0.2 mg/dL (0.2-1.2); Calc. Creatinine Clearance 0 mL/min (70-130); Calcium 9.6 mg/dL (7.8-10.44); Carbon Dioxide 27 mmol/L (23-31); Chloride 103 mmol/L (98-107); Globulin 4.3 g/dL (2.4-3.5); Glucose 452 mg/dL (83-110); Lipase 51 U/L (8-78); Potassium 3.7 mmol/L (3.5-5.1); Protein, Total 7.6 g/dL (6.0-8.3); Sodium 142 mmol/L (136-145)
[2020-09-20 19:08] LABS: Band 8 % (5-11); Eosinophils 1 % (0-10); Hemoglobin 10.1 g/dL (12.0-16.0); Lymphocytes 9 % (21-51); MDiff Complete? YES; Mean Corpuscular HGB CONC 31.1 g/dL (32.0-36.0); Mean Corpuscular Hemoglobin 31.9 pg (27.0-31.0); Mean Platelet Volume 6.3 fL (7.4-10.4); Metamyelocyte 1 % (0-0); Monocytes 3 % (0-10); Neutrophil 78 % (42-75); Platelet Count 217 thou/uL (130-400); RBC Distribution Width 12.8 % (11.5-14.5); Red Blood Cell (RBC) Count 3.17 mill/uL (4.20-5.40); White Blood Cell (WBC) Count 8.2 thou/uL (4.8-10.8)
[2020-09-20] MEDS ORDERED: Aspirin Chewable 81 MG TAB ONE (19:38)
[2020-09-20] MEDS ORDERED: Ondansetron PF 4 MG/2 ML Vial IVP PRN (23:00)
[2020-09-20] MEDS ORDERED: Ondansetron ODT 4 MG TAB SL PRN (23:00)
[2020-09-20] MEDS ORDERED: Acetaminophen 325 MG TAB PO PRN (23:00)
[2020-09-21] MEDS: cefTRIAXone\\ROCEPHIN 1 GM in Sodium Chloride 0.9% 100 ML IVPB SCH ×2 (05:32→13:50)
[2020-09-21] MEDS ORDERED: Acetaminophen ER (8hr) 650 MG TAB PO PRN (07:16)
[2020-09-21] MEDS ORDERED: [UNRECOGNIZED DRUG - OTHER] SC PRN (07:16)
[2020-09-21] MEDS ORDERED: Senokot S 8.6-50 MG TAB PO PRN (07:16)
[2020-09-21] MEDS ORDERED: Milk Of Magnesia 30 ML UDCUP PO PRN (07:16)
[2020-09-21] MEDS ORDERED: GLUCAGON HUMAN RECOMBINANT 1 MG SC PRN (07:16)
[2020-09-21] MEDS ORDERED: Dextrose 5% in Water 1,000 ML IV PRN (07:23)
[2020-09-21] MEDS ORDERED: Dextrose 50% Abboject 50 ML SYRINGE SLOW IVP PRN (07:23)
--- NOTE | 2020-09-21 07:48 | RAD ---
PORTABLE CHEST: Date: 09/20/2020 Comparison is made with an 04/11/2020 study. Patchy air space disease is seen in the lungs today. While some was present previously, there are christine e areas where it seems more prominent, particularly the base of the right upper lobe. Changes in the left lung seem similar. The heart is mildly enlarged, but no different than before. There are no simin estive changes or large pleural effusions. IMPRESSION: New patchy infiltrates on top of chronic changes seen previously. POS: HOME
[2020-09-21] MEDS: Mometasone/Formoterol 200/5 60 PUFF INH SCH ×2 (08:52→21:39)
[2020-09-21] MEDS: Polyethylene Glycol 3350 17 GM Packet PO SCH (08:52)
[2020-09-21] MEDS: Timolol 0.5% Ophth Soln 5 ml Bottle EA EYE SCH (08:54)
[2020-09-21] MEDS: hydrALAZINE 25 MG TAB PO SCH ×3 (08:55→20:12)
[2020-09-21] MEDS: Dorzolamide HCl 2% Ophth Soln 10 ml Bottle EA EYE SCH (08:55)
[2020-09-21] MEDS: Dexamethasone 4 MG TAB PO SCH (08:56)
[2020-09-21] MEDS: Isosorbide Mononitrate 20 MG TAB PO SCH ×2 (08:58→20:12)
[2020-09-21] MEDS: Carvedilol 6.25 MG TAB PO SCH ×2 (08:59→20:11)
[2020-09-21] MEDS: Furosemide 40 MG TAB PO SCH ×2 (08:59→13:51)
[2020-09-21] MEDS: Rivaroxaban 15 MG TAB PO SCH (08:59)
[2020-09-21] MEDS ORDERED: FLU VACC QS2020-21(65YR UP)/PF 240 MCG/0.7 ML SYRINGE IM ONE (09:00)
[2020-09-21] MEDS: Aspirin 81 mg Enteric Coated Tablet PO SCH (09:00)
[2020-09-21] MEDS: Ascorbic Acid 500 mg Chewable Tablet PO SCH (09:00)
[2020-09-21] MEDS ORDERED: Potassium Chloride 20 MEQ TAB PO SCH (09:00)
--- NOTE | 2020-09-21 13:48 | HP ---
CHIEF COMPLAINT: Fever and hyperglycemia. HISTORY OF PRESENT ILLNESS: An 89-year-old female, resident of [facility], presented to the [facility] Emergency Department last night due to fever and hyperglycemia with the blood sugar of 453. The patient is COVID positive as of 8 days ago, 09/13/2020. The patient was being treated with steroid therapy, which is likely contributing to her hyperglycemic state. She has also been taking [facility]. Kef[facility] She has a history of bladder outlet obstruction, for which she has a chronic indwelling Sevilla catheter. Workup in the emergency department revealed the patient to have a rectal temperature of 101.9 along with borderline tachycardia. Her lactic acid level was reassuring. She had no evidence of respiratory compromise, otherwise stable on room air. Both urine and blood cultures were obtained and the patient was started empirically on IV cefepime and vancomycin. She was provided 1 g Tylenol for her fever. She was also provided 2 L of normal saline intravenous fluids secondary to evidence of dehydration. The patient has subsequently been admitted for COVID pneumonia with complicated urinary tract infection and hyperglycemia. As of this morning, the patient is resting comfortably in her bed. She is a poor historian at baseline secondary to her underlying history of vascular dementia. She has remained afebrile overnight. She has no acute concerns otherwise as of now. PAST MEDICAL HISTORY: Includes diastolic CHF, coronary artery disease, hypertension, hyperlipidemia, type 2 diabetes mellitus, glaucoma, GERD, history of CVA, history of pulmonary embolism, peripheral vascular disease, COPD, chronic atrial fibrillation, vascular dementia, chronic kidney disease stage 3B, bladder outlet obstruction, and pulmonary hypertension. PAST SURGICAL HISTORY: Includes carpal tunnel repair bilaterally, back surgery, mitral valve replacement, appendectomy, and cholecystectomy. SOCIAL HISTORY: She is a long-term resident of [facility] in [place]. She is a nonsmoker with no alcohol or illicit drug use. She is chronically bed bound. FAMILY HISTORY: Noncontributory. ALLERGIES: AMBRISENTAN, BOSENTAN, DIPHENHYDRAMINE, METFORMIN, SILDENAFIL, TADALAFIL, AND RIOCIGUAT. CURRENT MEDICATIONS: 1. Florastor 250 mg daily. 2. Megace 40 mg daily. 3. Zinc 50 mg daily. 4. Vitamin C 500 mg daily. 5. Potassium chloride extended release 20 mEq b.i.d. 6. Sertraline 50 mg daily. 7. Lasix 40 mg daily. 8. Omeprazole 20 mg daily. 9. Hydralazine 100 mg t.i.d. 10. Novolin R sliding scale. 11. Tylenol 650 mg q.8 hours p.r.n. 12. Xarelto 15 mg daily. 13. Melatonin 3 mg two tabs at bedtime. 14. Aspirin 81 mg daily. 15. MiraLAX 17 g daily. 16. Glipizide 2.5 mg daily. 17. Metolazone 2.5 mg on Sunday, Sunday, and Sunday. 18. Dorzolamide/timolol one drop to both eyes twice daily. 19. Latanoprost one drop to both eyes at bedtime. 20. Simvastatin 20 mg at bedtime. 21. Isosorbide mononitrate 10 mg b.i.d. 22. DuoNeb q.8 hours p.r.n. 23. Coreg 6.25 mg b.i.d. 24. Senokot 8.6/50 mg two tabs daily. 25. Milk of Magnesia 30 mL daily p.r.n. REVIEW OF SYSTEMS: Unable to obtain secondary to the patient's disorientation. LABORATORY DATA: White blood cell count is 8.2, hemoglobin 10.1, hematocrit 32.5, platelets 217. Sodium 142, potassium 3.7, BUN 58, creatinine 1.82, GFR is 32. Current glucose is 243. Lactic acid 1.4, AST 30, ALT 24, alkaline phosphatase 163. BNP 228, lipase 51. Urine, positive for glucose, large blood, nitrites, large leukocyte esterase with 1+ bacteria. COVID positive on 09/13/2020. IMAGIN09/20/2020, chest x-ray, radiology read is pending, however, reports consistent with COVID pneumonia per ED physician. PHYSICAL EXAMINATION: VITAL SIGNS: Temperature is 97.7, pulse is 104, respiratory rate is 24, oxygen is 98% on room air, and blood pressure 124/62. GENERAL: The patient is alert, oriented to self. She is in no acute distress. HEAD, EYES, EARS, NOSE, AND THROAT: Head is normocephalic and atraumatic. Pupils are equal, round, and reactive to light. Extraocular muscles are intact. Sclerae are clear. Moist mucous membranes. NECK: Supple without lymphadenopathy. RESPIRATORY: Coarse breath sounds without respiratory distress. No wheezing. CARDIOVASCULAR: Irregular rhythm with a 2-3/6 murmur. ABDOMEN: Soft and nontender to palpation. No guarding. No rebound. EXTREMITIES: No clubbing, cyanosis, or edema. SKIN: She has dry skin to the distal lower extremities. No rash. NEUROLOGIC: Nonfocal. She has generalized weakness at baseline. ASSESSMENT AND PLAN: 1. COVID pneumonia. We will provide dexamethasone 6 mg daily. She is on isolation precautions. As noted, her positive date was eight days ago on 09/13/2020. She is stable on room air at present with no respiratory distress. 2. Urinary tract infection, complicated. The patient has a chronic indwelling Sevilla catheter secondary to urinary outlet obstruction. She [facility]eflex [facility] jail. She has been started on IV vancomycin and Rocephin, which will be continued at this time with followup of her urine cultures. 3. Type 2 diabetes mellitus with hyperglycemia. Hyperglycemia is likely steroid induced. We will continue her usual medication for diabetes and add a Humalog sliding scale. The patient's hemoglobin A1c as of 04/06/2020 was 6.2. We will repeat this tomorrow morning. 4. Chronic diastolic congestive heart failure. The patient appears to be at euvolemia. We will record daily weights and resume her usual diuretic regimen. 5. Chronic atrial fibrillation. She is chronically anticoagulated with Xarelto. Heart rate is stable at present. 6. Hypertension. Blood pressure is at goal. We will resume her usual blood pressure medications. 7. Dyslipidemia. We will resume statin therapy. 8. Vascular dementia. The patient is at her baseline and a chronically bed- bound resident at [facility]. 9. Chronic obstructive pulmonary disease. Symbicort will be resumed. As stated, she is stable on room air. We will monitor her oxygen saturation. 10. Chronic kidney disease, stage 3B. This appears to be at the patient's baseline. We will trend. 11. Prophylaxis. The patient is on Xarelto for chronic anticoagulant therapy and her proton pump inhibitor, pantoprazole will be resumed for gastrointestinal prophylaxis. CODE STATUS: The patient is DNAR. DISPOSITION: We will plan to continue IV antibiotics and monitor the patient's respiratory status. Follow up her blood and urine cultures and plan to [facility] when appropriate. Job ID: [id number] MTDD
[2020-09-21] MEDS: HumaLOG 300 UNITS/3 ML VIAL SC PRN ×2 (19:01→21:40)
[2020-09-21] MEDS: Vancomycin HCl 1 GM in Sodium Chloride 0.9% 250 ML 250 ML IVPB SCH (19:51)
[2020-09-21] MEDS: Melatonin 3 MG TAB PO SCH (20:12)
[2020-09-21] MEDS: Atorvastatin Calcium 10 MG TAB PO SCH (20:12)
[2020-09-21] MEDS: Latanoprost 0.005% Ophth Soln 2.5 ml Bottle EA EYE SCH (21:39)
[2020-09-22] MEDS: cefTRIAXone\\ROCEPHIN 1 GM in Sodium Chloride 0.9% 100 ML IVPB SCH ×2 (00:05→12:09)
[2020-09-22 05:53] LABS: BUN (Urea Nitrogen) 44 mg/dL (9.8-20.1); Calc. Creatinine Clearance 35 mL/min (70-130); Carbon Dioxide 24 mmol/L (23-31); Chloride 100 mmol/L (98-107); Potassium 3.6 mmol/L (3.5-5.1); Sodium 136 mmol/L (136-145)
[2020-09-22 05:54] LABS: ALT (SGPT) 25 U/L (8-55); AST (SGOT) 36 U/L (5-34); Albumin 2.9 g/dL (3.4-4.8); Alkaline Phosphatase 115 U/L (40-110); Bilirubin, Total 0.2 mg/dL (0.2-1.2); Calcium 8.3 mg/dL (7.8-10.44); Globulin 4.2 g/dL (2.4-3.5); Glucose 98 mg/dL (83-110); Protein, Total 7.1 g/dL (5.8-8.1)
[2020-09-22 05:55] LABS: Anion Gap 16 mmol/L (10-20); Hemoglobin 10.1 g/dL (12.0-16.0); Mean Corpuscular HGB CONC 31.8 g/dL (32.0-36.0); Mean Corpuscular Hemoglobin 31.6 pg (27.0-31.0); Mean Corpuscular Volume 99.5 fL (78.0-98.0); Mean Platelet Volume 7.2 fL (7.4-10.4); Platelet Count 160 thou/uL (130-400); RBC Distribution Width 12.5 % (11.5-14.5); Red Blood Cell (RBC) Count 3.19 mill/uL (4.20-5.40); White Blood Cell (WBC) Count 7.3 thou/uL (4.8-10.8)
[2020-09-22 05:56] LABS: #Lymphocytes 1.1 thou/uL (1.20-3.40); #Monocytes 0.4 thou/uL (0.11-0.59); #Neutrophils 5.8 thou/uL (1.40-6.50); %Basophils 0.4 % (0.0-1.0); %Eosinophils 0.2 % (0.0-10.0); %Lymphocytes 15.1 % (21.0-51.0); %Monocytes 4.8 % (0.0-10.0); %Neutrophils 79.5 % (42.0-75.0)
[2020-09-22] MEDS: Mometasone/Formoterol 200/5 60 PUFF INH SCH ×2 (09:29→21:11)
[2020-09-22] MEDS: Rivaroxaban 15 MG TAB PO SCH (09:29)
[2020-09-22] MEDS: Isosorbide Mononitrate 20 MG TAB PO SCH ×2 (09:31→21:12)
[2020-09-22] MEDS: Carvedilol 6.25 MG TAB PO SCH ×2 (09:32→21:13)
[2020-09-22] MEDS: Aspirin 81 mg Enteric Coated Tablet PO SCH (09:32)
[2020-09-22] MEDS: Furosemide 40 MG TAB PO SCH ×2 (09:33→13:30)
[2020-09-22] MEDS: Potassium Chloride 20 MEQ TAB PO SCH ×2 (09:33→17:07)
[2020-09-22] MEDS: Dexamethasone 4 MG TAB PO SCH (09:33)
[2020-09-22] MEDS: Metolazone 5 MG TAB PO SCH (09:34)
[2020-09-22] MEDS: Ascorbic Acid 500 mg Chewable Tablet PO SCH (09:35)
[2020-09-22] MEDS: hydrALAZINE 25 MG TAB PO SCH ×3 (09:35→21:11)
[2020-09-22] MEDS: Polyethylene Glycol 3350 17 GM Packet PO SCH (09:38)
[2020-09-22] MEDS: Timolol 0.5% Ophth Soln 5 ml Bottle EA EYE SCH (09:59)
[2020-09-22] MEDS: Dorzolamide HCl 2% Ophth Soln 10 ml Bottle EA EYE SCH (10:00)
[2020-09-22 10:33] VITALS: BMI 27.6
[2020-09-22 11:34] LABS: Hemoglobin A1c 6.9 % (4.0-6.0)
[2020-09-22] MEDS: HumaLOG 300 UNITS/3 ML VIAL SC PRN ×2 (17:12→21:16)
[2020-09-22 19:36] LABS: Vancomycin, Trough 18.3 ug/mL
[2020-09-22] MEDS: Vancomycin HCl 1 GM in Sodium Chloride 0.9% 250 ML 250 ML IVPB SCH (21:00)
[2020-09-22] MEDS: Megestrol Acetate 400 MG/10 ML UDCUP PO SCH (21:12)
[2020-09-22] MEDS: Atorvastatin Calcium 10 MG TAB PO SCH (21:13)
[2020-09-22] MEDS: Latanoprost 0.005% Ophth Soln 2.5 ml Bottle EA EYE SCH (21:13)
[2020-09-22] MEDS: Melatonin 3 MG TAB PO SCH (21:13)
[2020-09-23 06:34] VITALS: TEMP 97.8
[2020-09-23] MEDS: Dexamethasone 4 MG TAB PO SCH (08:06)
[2020-09-23] MEDS: Aspirin 81 mg Enteric Coated Tablet PO SCH (08:09)
[2020-09-23] MEDS: hydrALAZINE 25 MG TAB PO SCH ×3 (08:10→21:32)
[2020-09-23] MEDS: Megestrol Acetate 400 MG/10 ML UDCUP PO SCH ×2 (08:10→21:31)
[2020-09-23] MEDS: Rivaroxaban 15 MG TAB PO SCH (08:10)
[2020-09-23] MEDS: Isosorbide Mononitrate 20 MG TAB PO SCH ×2 (08:12→21:32)
[2020-09-23] MEDS: Furosemide 40 MG TAB PO SCH ×2 (08:13→14:05)
[2020-09-23] MEDS: Ascorbic Acid 500 mg Chewable Tablet PO SCH (08:13)
[2020-09-23] MEDS: Carvedilol 6.25 MG TAB PO SCH ×2 (08:14→21:33)
[2020-09-23] MEDS: Potassium Chloride 20 MEQ TAB PO SCH ×2 (08:14→17:17)
[2020-09-23] MEDS: Dorzolamide HCl 2% Ophth Soln 10 ml Bottle EA EYE SCH (08:17)
[2020-09-23] MEDS: Mometasone/Formoterol 200/5 60 PUFF INH SCH ×2 (08:18→21:30)
[2020-09-23] MEDS: Polyethylene Glycol 3350 17 GM Packet PO SCH (08:19)
[2020-09-23] MEDS: Timolol 0.5% Ophth Soln 5 ml Bottle EA EYE SCH (08:20)
[2020-09-23] MEDS ORDERED: Pantoprazole 40 MG GRANULES PACKET PO SCH (10:30)
[2020-09-23] MEDS: cefTRIAXone\\ROCEPHIN 1 GM in Sodium Chloride 0.9% 100 ML IVPB SCH ×2 (12:04)
[2020-09-23] MEDS: HumaLOG 300 UNITS/3 ML VIAL SC PRN ×2 (12:08→18:20)
[2020-09-23 18:51] LABS: Hemoglobin 10.6 g/dL (12.0-16.0); Platelet Count 263 thou/uL (130-400)
[2020-09-23] MEDS: Latanoprost 0.005% Ophth Soln 2.5 ml Bottle EA EYE SCH (21:31)
[2020-09-23] MEDS: Melatonin 3 MG TAB PO SCH (21:32)
[2020-09-23] MEDS: Atorvastatin Calcium 10 MG TAB PO SCH (21:32)
[2020-09-24] MEDS: cefTRIAXone\\ROCEPHIN 1 GM in Sodium Chloride 0.9% 100 ML IVPB SCH ×2 (01:40→12:24)
[2020-09-24] MEDS: hydrALAZINE 25 MG TAB PO SCH (08:06)
[2020-09-24] MEDS: Timolol 0.5% Ophth Soln 5 ml Bottle EA EYE SCH (08:07)
[2020-09-24] MEDS: Mometasone/Formoterol 200/5 60 PUFF INH SCH (08:07)
[2020-09-24] MEDS: Megestrol Acetate 400 MG/10 ML UDCUP PO SCH (08:08)
[2020-09-24] MEDS: Dorzolamide HCl 2% Ophth Soln 10 ml Bottle EA EYE SCH (08:09)
[2020-09-24] MEDS: HumaLOG 300 UNITS/3 ML VIAL SC PRN ×2 (08:09→12:40)
[2020-09-24] MEDS: Polyethylene Glycol 3350 17 GM Packet PO SCH (08:10)
[2020-09-24] MEDS: Carvedilol 6.25 MG TAB PO SCH (08:11)
[2020-09-24] MEDS: Ascorbic Acid 500 mg Chewable Tablet PO SCH (08:11)
[2020-09-24] MEDS: Metolazone 5 MG TAB PO SCH (08:12)
[2020-09-24] MEDS: Rivaroxaban 15 MG TAB PO SCH (08:12)
[2020-09-24] MEDS: Isosorbide Mononitrate 20 MG TAB PO SCH (08:13)
[2020-09-24] MEDS: Furosemide 40 MG TAB PO SCH (08:13)
[2020-09-24] MEDS: Dexamethasone 4 MG TAB PO SCH (08:14)
[2020-09-24] MEDS: Potassium Chloride 20 MEQ TAB PO SCH (08:14)
[2020-09-24 08:23] VITALS: BP 132/58
[2020-09-24] MEDS ORDERED: Pantoprazole 40 MG GRANULES PACKET PO SCH (09:00)
[2020-09-24] MEDS ORDERED: Aspirin Chewable 81 MG TAB PO SCH (09:00)
--- NOTE | 2020-09-25 06:19 | DIS ---
DATE OF ADMISSION: 09/20/2020 DATE OF DISCHARGE: 09/24/2020 ADMISSION DIAGNOSES: 1. COVID pneumonia. 2. Complicated urinary tract infection. 3. Type 2 diabetes mellitus with hyperglycemia. SECONDARY DIAGNOSES: 1. Chronic diastolic congestive heart failure. 2. Chronic atrial fibrillation. 3. Hypertension. 4. Dyslipidemia. 5. Vascular dementia. 6. Chronic obstructive pulmonary disease. 7. Chronic kidney disease stage IIIB. PROCEDURES: On 09/20/2020, chest x-ray shows new patchy infiltrates on top of chronic changes seen previously. HOSPITAL COURSE: This is an 89-year-old female, long-term resident of [facility] who tested positive for COVID on 09/13/2020, who was noted to be febrile and hyperglycemic at the halfway, prompting her evaluation in the emergency department. The patient does have a history of bladder outlet obstruction and is chronically bed-bound, for which she has a chronic indwelling Sevilla catheter. She had been found to have a urinary tract infection and was taking oral Keflex at the halfway prior to her arrival. In the emergency department, the patient had a temperature of 101.9 along with borderline tachycardia. She was noted to be stable on room air in regard to COVID. Blood and urine cultures were obtained and she was started empirically on IV cefepime and vancomycin. She was also provided normal saline IV fluids secondary to concern for dehydration. She admitted to the floor under isolation precautions to provide further care. It is felt that the patient's hyperglycemia with recorded blood sugar of 453 likely contributed to by taking oral steroids at the halfway. She was resumed on her usual diabetic medications and added Humalog sliding scale, which did improve her glucose readings while here. She was able to remain afebrile and on room air throughout her admission. Her blood cultures have returned, showing no growth to date. Her urine culture, isolated Pseudomonas aeruginosa, which was pansensitive. She had further Gram negative rods shown to be mixed enteric stewart. The patient is currently largely at her baseline and is suitable to return back to the halfway on a course of oral Levaquin as per her urine culture. At this point, she is on day 11, status post COVID positive diagnosis. DISPOSITION: The patient will discharge back to [facility] where she typically resides. DISCHARGE MEDICATIONS: One new medicine will be Levaquin 500 mg p.o. daily x5 days. One medication change will be Megace 400 mg b.i.d. She is to resume her usual medications otherwise which include: 1. Florastor 250 mg daily. 2. Zinc 50 mg daily. 3. Vitamin C 500 mg daily. 4. Potassium chloride extended release 20 mEq b.i.d. 5. Sertraline 50 mg daily. 6. Lasix 40 mg b.i.d. 7. Omeprazole 20 mg daily. 8. Hydralazine 100 mg t.i.d. 9. Novolin R sliding scale. 10. Tylenol 650 mg q.8 hours p.r.n. 11. Xarelto 15 mg daily. 12. Melatonin 3 mg two tablets at bedtime. 13. Aspirin 81 mg daily. 14. MiraLAX 17 g daily. 15. Glipizide 2.5 mg daily. 16. Metolazone 2.5 mg on Sunday, Sunday, and Sunday. 17. Dorzolamide/timolol one drop to both eyes b.i.d. 18. Latanoprost one drop to both eyes at bedtime. 19. Simvastatin 20 mg at bedtime. 20. Isosorbide mononitrate 10 mg b.i.d. 21. DuoNeb q.8 hours p.r.n. 22. Coreg 6.25 mg b.i.d. 23. Senokot 8.6-50 mg two tablets daily. 24. Milk of mag 30 mL daily p.r.n. Total time spent in preparation of discharge of this patient greater than 30 minutes. Job ID: [id number]
--- NOTE | 2020-09-28 02:38 | PQF ---
CLINICAL DOCUMENTATION CLARIFICATION FORM: Dear : Niraj Almaraz MD Date / Time: 09/28/2020 Please exercise your independent, professional judgment in responding to the clarification form. Clinical indicators are provided on the bottom of this form for your review Please check appropriate box(es) to clarify if the following diagnosis has been ruled in our ruled out: [ ] Ruled in Sepsis [ ] Continue to treat [ x] Resolved [ ] Ruled out Sepsis [ ] Improving [ ] Cannot rule out diagnosis [ ] Other diagnosis (Please specify if any) [ ] Unable to determine In addition, please specify: Present on Admission (POA): [x ] Yes [ ] No [ ] Unable to determine Physician Signature: Date/Time: For continuity of documentation, please document condition throughout progress notes and discharge summary. Thank You. To be completed by CDI/Coding staff for physician review: Present Clinical Indicators - Signs / Symptoms / Labs Results and Location in Medical Record [x] Sepsis ED provider report on 09/20 [x] Patient was activated as a sepsis alert with evidence for pneumonia & UTI. ED provider report on 09/20 [x] Her blood cultures have vreturned, showing no growth to date. Discharge summary on 09/24 [ ] Present Risk Factors Results and Location in Medical Record [x] Covid pneumonia ED provider report on 09/20 [x] Aged person 89 yrs ED provider report on 09/20 [ ] [ ] Present Treatments Results and Location in Medical Record [x] Vancomycin 1gm Medication on 09/20 [x] Rocephin 1gm Medication from 09/20 to 09/24 [ ] [ ] CDS/Electric Distribution Engineer Signature: AAS Phone #: Date/Time: 09/28/2020 This is a permanent part of the Medical Record [facility]
== END 2020-09-24 13:52 | DRG 871 ==
LOC: BURERS 17:35 → BURMED 19:56
PROVIDERS: ADMIT Family Medicine; ATTEND Family Medicine
DX: A41.89 Other specified sepsis (principal); U07.1 COVID-19; J12.82 Pneumonia due to coronavirus disease 2019; N39.0 Urinary tract infection, site not specified; I50.32 Chronic diastolic (congestive) heart failure; I48.20 Chronic atrial fibrillation, unspecified; I13.0 Hypertensive heart and chronic kidney disease with heart failure and stage 1 through stage 4 chronic kidney disease, or unspecified chronic kidney disease; N13.8 Other obstructive and reflux uropathy; J44.0 Chronic obstructive pulmonary disease with (acute) lower respiratory infection; K21.9 Gastro-esophageal reflux disease without esophagitis; E78.5 Hyperlipidemia, unspecified; I73.9 Peripheral vascular disease, unspecified; R62.7 Adult failure to thrive; F41.9 Anxiety disorder, unspecified; E11.65 Type 2 diabetes mellitus with hyperglycemia; I25.10 Atherosclerotic heart disease of native coronary artery without angina pectoris; N18.32 Chronic kidney disease, stage 3b; F01.50 Vascular dementia, unspecified severity, without behavioral disturbance, psychotic disturbance, mood disturbance, and anxiety; T38.0X5A Adverse effect of glucocorticoids and synthetic analogues, initial encounter; Z66 Do not resuscitate; Z95.4 Presence of other heart-valve replacement; Y92.9 Unspecified place or not applicable; Z98.890 Other specified postprocedural states; Z79.82 Long term (current) use of aspirin; Z79.899 Other long term (current) drug therapy; Z86.73 Personal history of transient ischemic attack (TIA), and cerebral infarction without residual deficits; Z86.711 Personal history of pulmonary embolism; Z90.49 Acquired absence of other specified parts of digestive tract; Z88.8 Allergy status to other drugs, medicaments and biological substances; Z79.01 Long term (current) use of anticoagulants; Z79.51 Long term (current) use of inhaled steroids; Z74.01 Bed confinement status; E86.0 Dehydration; E11.22 Type 2 diabetes mellitus with diabetic chronic kidney disease
CPT/HCPCS: 36415; 36416; 71045; 80053; 80202; 81003; 81015; 82330; 82553; 82565; 82803; 83036; 83605; 83690; 83880; 84484; 85014; 85018; 85025; 85049; 85379; 87040; 87077; 87086; 87186; 93005; 94664; 96365; 96375; J0692; J0696; J3370; J3490; J7050; J8540

== ENCOUNTER 2020-12-10 20:40 | Emergency (ER) | payer MEDICARE, MEDICAID ==
[2020-12-10] MEDS ORDERED: Cephalexin 250 MG CAP ONE (21:04)
[2020-12-10] MEDS ORDERED: Lidocaine 2% w/Epinephrine 1:200K 20 ML VIAL ONE (21:06)
[2020-12-10] MEDS ORDERED: Bacitracin 1 PK ONE (21:50)
== END 2020-12-10 22:45 ==
LOC: BURERS 20:40
DX: S81.812A Laceration without foreign body, left lower leg, initial encounter (principal); I25.2 Old myocardial infarction; I11.0 Hypertensive heart disease with heart failure; I50.9 Heart failure, unspecified; E11.9 Type 2 diabetes mellitus without complications; K21.9 Gastro-esophageal reflux disease without esophagitis; E78.5 Hyperlipidemia, unspecified; Z79.899 Other long term (current) drug therapy; X58.XXXA Exposure to other specified factors, initial encounter
CPT/HCPCS: 12004

== ENCOUNTER 2020-12-11 21:44 | Emergency (ER) | payer MEDICARE, MEDICAID ==
[2020-12-11] MEDS ORDERED: Lidocaine 1% w/Epinephrine 1:100K 20 ML VIAL ONE (21:59)
== END 2020-12-11 22:42 ==
LOC: BURERS 21:44
DX: L76.22 Postprocedural hemorrhage of skin and subcutaneous tissue following other procedure (principal); I11.0 Hypertensive heart disease with heart failure; I50.9 Heart failure, unspecified; E11.9 Type 2 diabetes mellitus without complications; K21.9 Gastro-esophageal reflux disease without esophagitis; Z79.51 Long term (current) use of inhaled steroids; Z79.899 Other long term (current) drug therapy
CPT/HCPCS: 12004